=== PATIENT | male | born 1960 | race Caucasian/White ===

== ENCOUNTER 2020-11-07 06:26 | Day surgery (SDC) | payer MEDICARE ==
[~2020-11-07] VITALS: Ht 177.8 cm; Wt 114.7 kg
[~2020-11-07 06:26] MED LIST: ALBU.083IS IH; ALBU90OI INH; ALBU90OI6 INH; ALBU90OI61 INH; ALBUIS; ALBUTEROL NEB; AMOCLA875 PO; ASPI81EC; ASPI81EC PO; AZIT250 PO; Aspir 8181 MG PO; BASAGLAR K100 UNIT/1 SC; BECLNI19AQ IH; BENZ100A PO; BUDE10.22 IH; BUDE6HFA; BUDE6HFA INH; BUDESONIDE; CALCA500CH PO; CLON.5 PO; DIPH50 PO; DOXY100 PO; EPIN0.15; ESOM20; FLUC150A PO; FLUSAL1005; FLUSAL2505 IH; FLUSAL5005 IH; FLUSAL5005 INH; FLUT.05NI; FORMOTEROL; GUAI200 PO; HUMALOG KW100 UNIT/1 SC; HYDACE5 PO; HYDCHL12.5; HYDCHL25; IBUP200; IPRA.03NI; IPRAOI INH; Klonopin0.5 MG PO; LEVFLO500 PO; LISHYD1012 PO; LISHYD2025 PO; LISI20; LISI20 PO; MECL25 PO; METF500 PO; METFORMIN HCL500 MG PO; METO10; MOMENI; MONT10T PO; MONT5TCH PO; NAPR500 PO; NIFE90ER PO; OMALIZUMAB; OMEP20ER PO; OMEP40CA12 PO; ONDA4 PO; OXYACE5T PO; PENVK500; PENVK500 PO; PRED10 PO; PRED20 PO; PROM25 PO; SODIUM CHLORIDE; SUCR1 PO; SUCR1SU PO; SYMBICORT; VERA180ERA PO; Xolair150 MG SQ; ZESTORETIC 20-121 EA; [UNRECOGNIZED DRUG - OTHER]; [UNRECOGNIZED DRUG - REMARK]
[2020-11-07] MEDS ORDERED: HYDCHL25 (07:02)
[2020-11-07] MEDS ORDERED: SERT50 (07:02)
--- NOTE | 2020-11-07 07:26 | NUR ---
11/07/20 0726 Beena Baez REPORTED HTN TO DR HULL, NO ORDERS GIVEN. rEPORTED PTS HX COPD/ATHMA/COSME/CPAP AND DAILY USE OF INHALERS/ CLEAR WITH COUGH ON ADMISSION. ASKED IF DR HULL WOULD LIKE BREATHING TX, NO ORDERS GIVEN.
--- NOTE | 2020-11-07 08:12 | NUR ---
11/07/20 0812 Kevin Alejandra 2% LIDOCAINE WITH EPI 1:100,000 DILUTED WITH 0.9% INJ NORMAL SALINE 1:1 TO OBTAIN SOLUTION OF 1% LIDOCAINE WITH EPI 1:200,000. 3ML'S OF THIS SOLUTION INJ BY DR ESQUEDA INTO UPPER MOUTH FOR BLOCK AT 0755.
--- NOTE | 2020-11-07 10:44 | NUR ---
11/07/20 1044 [place] FENTANYL 50MCG GIVEN FOR CO PAIN
--- NOTE | 2020-11-07 11:11 | NUR ---
11/07/20 1111 [place] ALBUTEROL INHAL TREATMENT GIVEN PER DR HULL
== END 2020-11-07 12:12 | disposition home or self-care (01) ==
LOC: ORSCSDS 06:26
PROVIDERS: Otolaryngology
PROC: 09TU8ZZ Resection of Right Ethmoid Sinus, Via Natural or Artificial Opening Endoscopic (ICD-10-PCS; principal; 2020-11-07 07:30)
PROC: 8E09XBZ Computer Assisted Procedure of Head and Neck Region (ICD-10-PCS; principal; 2020-11-07 07:30)
PROC: 09TV8ZZ Resection of Left Ethmoid Sinus, Via Natural or Artificial Opening Endoscopic (ICD-10-PCS; principal; 2020-11-07 07:30)
DX: J32.4 Chronic pansinusitis (principal); J33.0 Polyp of nasal cavity; I10 Essential (primary) hypertension; G47.33 Obstructive sleep apnea (adult) (pediatric); J45.909 Unspecified asthma, uncomplicated; K21.9 Gastro-esophageal reflux disease without esophagitis; F17.220 Nicotine dependence, chewing tobacco, uncomplicated; E66.01 Morbid (severe) obesity due to excess calories; Z68.36 Body mass index [BMI] 36.0-36.9, adult
CPT/HCPCS: 82947; 88305; 88312; C2625; J0171; J1100; J2001; J2250; J2370; J2405; J2704; J3010; J7120

== ENCOUNTER 2020-11-11 23:11 | Emergency (ER) | payer MEDICARE ==
[~2020-11-11] VITALS: Ht 177.8 cm; Wt 108.9 kg
[~2020-11-11 23:11] MED LIST changes: +SERT50
[2020-11-11] MEDS ORDERED: LOSA25 PO (23:20)
[2020-11-11] MEDS ORDERED: ROPI.25 PO (23:21)
[2020-11-11] MEDS ORDERED: CLAR500CR (23:22)
[2020-11-11] MEDS ORDERED: PROM25 (23:28)
[2020-11-11] MEDS ORDERED: DULO60 PO (23:29)
[2020-11-11] MEDS ORDERED: DOXY100 PO (23:29)
[2020-11-11] MEDS ORDERED: MONT10T PO (23:30)
[2020-11-11] MEDS ORDERED: GABA400 PO (23:31)
[2020-11-11] MEDS ORDERED: METF500 PO (23:31)
[2020-11-11] MEDS ORDERED: ATOR80 PO (23:32)
[2020-11-12] MEDS ORDERED: PSEUDOEPHEDRINE30 M1 PO (02:47)
[2020-11-12] MEDS ORDERED: Roxicodone5 MG PO (02:47)
== END 2020-11-12 02:57 | disposition home or self-care (01) ==
LOC: ER 23:11
DX: J32.9 Chronic sinusitis, unspecified (principal); G89.18 Other acute postprocedural pain; J34.89 Other specified disorders of nose and nasal sinuses; I10 Essential (primary) hypertension; J44.9 Chronic obstructive pulmonary disease, unspecified; E11.9 Type 2 diabetes mellitus without complications; Z88.8 Allergy status to other drugs, medicaments and biological substances; Z79.52 Long term (current) use of systemic steroids; Z79.82 Long term (current) use of aspirin; Z79.899 Other long term (current) drug therapy
CPT/HCPCS: 70486; 96372; 99284-25; A9270; J1170

== ENCOUNTER 2020-12-01 03:47 | Emergency (ER) | payer MEDICARE ==
[~2020-12-01] VITALS: Ht 177.8 cm; Wt 63.5 kg
[~2020-12-01 03:47] MED LIST changes: -ALBUIS; -BUDE6HFA; +CLAR500CR; -FLUT.05NI; +PROM25; +PSEUDOEPHEDRINE30 M1 PO; +Roxicodone5 MG PO; -SERT50
== END 2020-12-01 05:40 | disposition home or self-care (01) ==
LOC: ER 03:47
DX: G89.18 Other acute postprocedural pain (principal); J34.89 Other specified disorders of nose and nasal sinuses; I10 Essential (primary) hypertension; J44.9 Chronic obstructive pulmonary disease, unspecified; E11.9 Type 2 diabetes mellitus without complications; I25.10 Atherosclerotic heart disease of native coronary artery without angina pectoris; F17.220 Nicotine dependence, chewing tobacco, uncomplicated; Z79.52 Long term (current) use of systemic steroids; Z79.84 Long term (current) use of oral hypoglycemic drugs; Z79.82 Long term (current) use of aspirin; Z79.899 Other long term (current) drug therapy
CPT/HCPCS: 99285; A9270

== ENCOUNTER 2021-01-03 16:18 | Emergency (ER) | payer MEDICARE ==
[~2021-01-03] VITALS: Ht 177.8 cm; Wt 108.9 kg
[2021-01-03 16:52] LABS: BASOPHILS ABSOLUTE AUTO 0.11 K/mm3 (0.00-0.23); BASOPHILS PERCENT AUTO 2 % (0-2); EOSINOPHILS PERCENT AUTO 7 % (0-6); Hematocrit 41.9 % (37.0-53.0); Hemoglobin 12.7 g/dL (13.5-17.5); IMMATURE GRAN ABSOLUTE AUTO 0.03 K/mm3 (0.00-0.10); IMMATURE GRAN PERCENT AUTO 0 % (0-1); LYMPHOCYTES ABSOLUTE AUTO 1.79 K/mm3 (0.84-5.20); LYMPHOCYTES PERCENT AUTO 24 % (21-46); MONOCYTES ABSOLUTE AUTO 0.67 K/mm3 (0.16-1.47); MONOCYTES PERCENT AUTO 9 % (4-13); Mean Corpuscular HGB 24.9 pg (26.0-34.0); Mean Corpuscular HGB Conc 30.3 g/dL (31.5-36.5); Mean Corpuscular Volume 82 fL (80-100); Mean Platelet Volume 9.4 fL (9.1-12.4); NEUTROPHILS ABSOLUTE AUTO 4.28 K/mm3 (1.96-9.15); NEUTROPHILS PERCENT AUTO 58 % (41-73); Platelet Count 320 K/mm3 (150-400); RDW Coefficient Variation 14.7 % (11.7-14.2); Red Blood Cell Count 5.11 M/mm3 (4.30-5.90); White Blood Cell Count 7.38 K/mm3 (4.00-11.30)
[2021-01-03 17:23] LABS: Alanine Aminotransfer (ALT/SGP 23 U/L (12-78); Albumin, Blood 3.3 g/dL (3.4-5.0); Albumin/Globulin Ratio 0.8 (0.8-1.8); Alk Phos 122 U/L (50-136); Anion Gap 7 mmol/L (6-16); Aspartate Aminotrans (AST/SGOT 12 U/L (12-37); Bilirubin, Total 0.1 mg/dL (0.1-1.0); Blood Urea Nitrogen 18 mg/dL (8-24); Bun/Creatinine Ratio 24.7 (12.0-20.0); CO2, Blood 25 mmol/L (21-32); Calcium, Blood 8.2 mg/dL (8.5-10.1); Chloride, Blood 113 mmol/L (98-108); Creatinine, Blood 0.73 mg/dL (0.60-1.20); Globulin, Blood 4.1 g/dL (2.2-4.0); Glomerular Filtration Rate >60 (60-); Glucose, Blood 103 mg/dL (70-99); Potassium, Blood 3.5 mmol/L (3.5-5.5); Sodium, Blood 145 mmol/L (136-145); Total Protein, Blood 7.4 g/dL (6.4-8.2); Troponin I <0.015 ng/mL (0.000-0.040)
== END 2021-01-03 19:47 | disposition home or self-care (01) ==
LOC: ER 16:18
PROVIDERS: Emergency Medicine
DX: R55 Syncope and collapse (principal); I10 Essential (primary) hypertension; J44.9 Chronic obstructive pulmonary disease, unspecified; E11.9 Type 2 diabetes mellitus without complications; I25.10 Atherosclerotic heart disease of native coronary artery without angina pectoris; Z79.52 Long term (current) use of systemic steroids; Z79.82 Long term (current) use of aspirin; Z79.899 Other long term (current) drug therapy; F17.220 Nicotine dependence, chewing tobacco, uncomplicated
CPT/HCPCS: 71046; 80053; 84484; 85025; 93005; 93010; 96360; 96361; 99285-25; J7030

== ENCOUNTER 2021-01-11 21:53 | Emergency (ER) | payer MEDICARE ==
[~2021-01-11] VITALS: Ht 177.8 cm; Wt 104.3 kg
[2021-01-11 22:05] LABS: Calcium, Ionized (POC) 0.96 mmol/L (1.10-1.46); Chloride (POC) 106 mmol/L (98-108); Creatinine (POC) 1.1 mg/dL (0.8-1.3); Glucose (ISTAT POC) 99 mg/dL (70-99); Hemoglobin (POC) 13.9 g/dL (13.5-17.5); Potassium (POC) 3.6 mmol/L (3.5-5.5); Sodium (POC) 143 mmol/L (135-148); Total CO2 (POC) 24 mmol/L (21-32)
[2021-01-11 22:07] LABS: PO2 Arterial 116 mmHg (80-100); pH Blood Arterial 7.48 (7.35-7.45)
[2021-01-11 22:18] LABS: BASOPHILS ABSOLUTE AUTO 0.12 K/mm3 (0.00-0.23); BASOPHILS PERCENT AUTO 2 % (0-2); EOSINOPHILS ABSOLUTE AUTO 0.39 K/mm3 (0.00-0.68); EOSINOPHILS PERCENT AUTO 5 % (0-6); Hematocrit 41.3 % (37.0-53.0); Hemoglobin 12.8 g/dL (13.5-17.5); IMMATURE GRAN ABSOLUTE AUTO 0.03 K/mm3 (0.00-0.10); IMMATURE GRAN PERCENT AUTO 0 % (0-1); LYMPHOCYTES ABSOLUTE AUTO 2.03 K/mm3 (0.84-5.20); LYMPHOCYTES PERCENT AUTO 28 % (21-46); MONOCYTES ABSOLUTE AUTO 0.54 K/mm3 (0.16-1.47); MONOCYTES PERCENT AUTO 7 % (4-13); Mean Corpuscular HGB 24.9 pg (26.0-34.0); Mean Corpuscular Volume 80 fL (80-100); Mean Platelet Volume 9.2 fL (9.1-12.4); NEUTROPHILS ABSOLUTE AUTO 4.22 K/mm3 (1.96-9.15); NEUTROPHILS PERCENT AUTO 58 % (41-73); Platelet Count 335 K/mm3 (150-400); RDW Coefficient Variation 14.7 % (11.7-14.2); RDW Standard Deviation 43.1 fL (35.1-46.3); Red Blood Cell Count 5.14 M/mm3 (4.30-5.90); White Blood Cell Count 7.33 K/mm3 (4.00-11.30)
[2021-01-11] MEDS ORDERED: SERT50 PO (22:28)
[2021-01-11] MEDS ORDERED: LOSA25 PO (22:28)
[2021-01-11] MEDS ORDERED: DULO60 PO (22:29)
[2021-01-11] MEDS ORDERED: ATOR80 PO (22:29)
[2021-01-11] MEDS ORDERED: MONT10T PO (22:30)
[2021-01-11] MEDS ORDERED: BASAGLAR K100 UNIT/1 (22:30)
[2021-01-11] MEDS ORDERED: OMEP20ER PO (22:30)
[2021-01-11] MEDS ORDERED: SYMBICORT 80-10.2 GM INH (22:31)
[2021-01-11] MEDS ORDERED: ROPINIROLE HCL0.5 MG PO (22:31)
[2021-01-11] MEDS ORDERED: FLUT.05NI (22:32)
[2021-01-11] MEDS ORDERED: HYDCHL25 PO (22:33)
[2021-01-11] MEDS ORDERED: NOVOLOG FL100 UNIT/3 (22:34)
[2021-01-11 22:35] LABS: International Normalized Ratio 0.91; Prothrombin Time Results 9.8 Sec (9.7-11.5)
[2021-01-11] MEDS ORDERED: Ventolin/Prove6.7 GM INH (22:35)
[2021-01-11] MEDS ORDERED: GABAPENTIN600 MG PO (22:35)
[2021-01-11 22:37] LABS: Troponin I <0.015 ng/mL (0.000-0.040)
[2021-01-11 23:06] LABS: Alanine Aminotransfer (ALT/SGP 25 U/L (12-78); Albumin, Blood 3.2 g/dL (3.4-5.0); Albumin/Globulin Ratio 0.8 (0.8-1.8); Alk Phos 129 U/L (50-136); Anion Gap 12 mmol/L (6-16); Aspartate Aminotrans (AST/SGOT 18 U/L (12-37); Bilirubin, Total 0.2 mg/dL (0.1-1.0); Blood Urea Nitrogen 15 mg/dL (8-24); Bun/Creatinine Ratio 18.6 (12.0-20.0); CO2, Blood 22 mmol/L (21-32); Calcium, Blood 8.1 mg/dL (8.5-10.1); Chloride, Blood 111 mmol/L (98-108); Creatinine, Blood 0.81 mg/dL (0.60-1.20); Ethanol (Alcohol), Blood, Med 306 mg/dL; Globulin, Blood 4.2 g/dL (2.2-4.0); Glomerular Filtration Rate >60 (60-); Glucose, Blood 93 mg/dL (70-99); Potassium, Blood 3.6 mmol/L (3.5-5.5); Sodium, Blood 145 mmol/L (136-145); Total Protein, Blood 7.4 g/dL (6.4-8.2)
== END 2021-01-11 23:05 | disposition left against medical advice (07) ==
LOC: ER 21:53
PROVIDERS: Emergency Medicine
DX: F10.129 Alcohol abuse with intoxication, unspecified (principal); R55 Syncope and collapse; I10 Essential (primary) hypertension; J44.9 Chronic obstructive pulmonary disease, unspecified; Z79.52 Long term (current) use of systemic steroids; Z79.899 Other long term (current) drug therapy
CPT/HCPCS: 36415; 36600; 70450; 72125; 80047; 80053; 82140; 82803; 84484; 85014; 85025; 85610; 85730; 93005; 93010; 99285-25; G0480

== ENCOUNTER 2021-01-11 23:47 | Observation (INO) | payer MEDICARE ==
[~2021-01-11] VITALS: Ht 177.8 cm; Wt 104.3 kg
[~2021-01-11 23:47] MED LIST changes: +ATOR80 PO; +BASAGLAR K100 UNIT/1; +DULO60 PO; +FLUT.05NI; +GABAPENTIN600 MG PO; +HYDCHL25 PO; +LOSA25 PO; +NOVOLOG FL100 UNIT/3; +ROPINIROLE HCL0.5 MG PO; +SERT50 PO; +SYMBICORT 80-10.2 GM INH; +Ventolin/Prove6.7 GM INH
== END 2021-01-12 01:19 | disposition home or self-care (01) ==
LOC: ER 23:47 → EOR 23:48 → ER 01-12 00:03 → EOR 01-12 01:19
PROVIDERS: ADMIT Emergency Medicine
DX: F10.129 Alcohol abuse with intoxication, unspecified (principal); Y90.9 Presence of alcohol in blood, level not specified
CPT/HCPCS: 36415; 36600; 70450; 72125; 80053; 82140; 82803; 84484; 85025; 85610; 85730; 93005; 93010; 99285; 99285-25; G0378; G0480

== ENCOUNTER 2021-05-19 18:21 | Emergency (ER) | payer MEDICARE ==
[~2021-05-19] VITALS: Ht 177.8 cm; Wt 90.7 kg
[2021-05-19 19:11] LABS: BASOPHILS ABSOLUTE AUTO 0.14 K/mm3 (0.00-0.23); BASOPHILS PERCENT AUTO 2 % (0-2); EOSINOPHILS ABSOLUTE AUTO 0.21 K/mm3 (0.00-0.68); EOSINOPHILS PERCENT AUTO 3 % (0-6); Hemoglobin 13.4 g/dL (13.5-17.5); IMMATURE GRAN ABSOLUTE AUTO 0.02 K/mm3 (0.00-0.10); IMMATURE GRAN PERCENT AUTO 0 % (0-1); LYMPHOCYTES ABSOLUTE AUTO 1.87 K/mm3 (0.84-5.20); LYMPHOCYTES PERCENT AUTO 27 % (21-46); MONOCYTES ABSOLUTE AUTO 0.75 K/mm3 (0.16-1.47); MONOCYTES PERCENT AUTO 11 % (4-13); Mean Corpuscular HGB 25.8 pg (26.0-34.0); Mean Corpuscular HGB Conc 31.9 g/dL (31.5-36.5); Mean Corpuscular Volume 81 fL (80-100); Mean Platelet Volume 9.2 fL (9.1-12.4); NEUTROPHILS ABSOLUTE AUTO 4.06 K/mm3 (1.96-9.15); NEUTROPHILS PERCENT AUTO 58 % (41-73); Platelet Count 309 K/mm3 (150-400); RDW Standard Deviation 52.9 fL (35.1-46.3); Red Blood Cell Count 5.19 M/mm3 (4.30-5.90); White Blood Cell Count 7.05 K/mm3 (4.00-11.30)
[2021-05-19 19:23] LABS: Alanine Aminotransfer (ALT/SGP 26 U/L (12-78); Albumin, Blood 3.4 g/dL (3.4-5.0); Albumin/Globulin Ratio 0.7 (0.8-1.8); Alk Phos 121 U/L (50-136); Anion Gap 8 mmol/L (6-16); Aspartate Aminotrans (AST/SGOT 33 U/L (12-37); Bilirubin, Total 0.2 mg/dL (0.1-1.0); Blood Urea Nitrogen 14 mg/dL (8-24); Bun/Creatinine Ratio 14.6 (12.0-20.0); CO2, Blood 26 mmol/L (21-32); Calcium, Blood 8.8 mg/dL (8.5-10.1); Chloride, Blood 109 mmol/L (98-108); Creatinine, Blood 0.96 mg/dL (0.60-1.20); Globulin, Blood 4.9 g/dL (2.2-4.0); Glomerular Filtration Rate >60 (60-); Glucose, Blood 105 mg/dL (70-99); Potassium, Blood 3.7 mmol/L (3.5-5.5); Sodium, Blood 143 mmol/L (136-145); Total Protein, Blood 8.3 g/dL (6.4-8.2)
== END 2021-05-19 20:00 | disposition home or self-care (01) ==
LOC: ER 18:21
PROVIDERS: Physician Assistant
DX: E86.0 Dehydration (principal); I10 Essential (primary) hypertension; J44.9 Chronic obstructive pulmonary disease, unspecified; F17.220 Nicotine dependence, chewing tobacco, uncomplicated; Z79.899 Other long term (current) drug therapy; Z79.4 Long term (current) use of insulin; Z88.8 Allergy status to other drugs, medicaments and biological substances
CPT/HCPCS: 36415; 80053; 83690; 85025; 96361; 96374; 99284-25; J2405; J7030

== ENCOUNTER 2021-06-02 01:34 | Emergency (ER) | payer MEDICARE, OTHER ==
[~2021-06-02] VITALS: Ht 177.8 cm; Wt 95.2 kg
[2021-06-02 02:07] LABS: BASOPHILS ABSOLUTE AUTO 0.13 K/mm3 (0.00-0.23); BASOPHILS PERCENT AUTO 2 % (0-2); EOSINOPHILS ABSOLUTE AUTO 0.14 K/mm3 (0.00-0.68); EOSINOPHILS PERCENT AUTO 2 % (0-6); Hematocrit 38.5 % (37.0-53.0); Hemoglobin 12.3 g/dL (13.5-17.5); IMMATURE GRAN ABSOLUTE AUTO 0.04 K/mm3 (0.00-0.10); IMMATURE GRAN PERCENT AUTO 1 % (0-1); LYMPHOCYTES ABSOLUTE AUTO 1.22 K/mm3 (0.84-5.20); LYMPHOCYTES PERCENT AUTO 18 % (21-46); MONOCYTES PERCENT AUTO 13 % (4-13); Mean Corpuscular HGB 26.3 pg (26.0-34.0); Mean Corpuscular HGB Conc 31.9 g/dL (31.5-36.5); Mean Corpuscular Volume 82 fL (80-100); Mean Platelet Volume 8.8 fL (9.1-12.4); NEUTROPHILS ABSOLUTE AUTO 4.48 K/mm3 (1.96-9.15); NEUTROPHILS PERCENT AUTO 65 % (41-73); Platelet Count 243 K/mm3 (150-400); RDW Standard Deviation 50.8 fL (35.1-46.3); Red Blood Cell Count 4.68 M/mm3 (4.30-5.90); White Blood Cell Count 6.91 K/mm3 (4.00-11.30)
[2021-06-02 02:12] LABS: Ethanol (Alcohol), Blood, Med <3 mg/dL; Magnesium, Blood 1.8 mg/dL (1.6-2.4); Troponin I <0.015 ng/mL (0.000-0.040)
[2021-06-02 02:13] LABS: Alanine Aminotransfer (ALT/SGP 26 U/L (12-78); Albumin, Blood 3.3 g/dL (3.4-5.0); Albumin/Globulin Ratio 0.8 (0.8-1.8); Alk Phos 105 U/L (50-136); Anion Gap 9 mmol/L (6-16); Aspartate Aminotrans (AST/SGOT 20 U/L (12-37); Bilirubin, Total 0.4 mg/dL (0.1-1.0); Blood Urea Nitrogen 13 mg/dL (8-24); CO2, Blood 26 mmol/L (21-32); Calcium, Blood 8.5 mg/dL (8.5-10.1); Chloride, Blood 105 mmol/L (98-108); Creatinine, Blood 0.81 mg/dL (0.60-1.20); Globulin, Blood 4.3 g/dL (2.2-4.0); Glomerular Filtration Rate >60 (60-); Glucose, Blood 117 mg/dL (70-99); Potassium, Blood 3.2 mmol/L (3.5-5.5); Sodium, Blood 140 mmol/L (136-145); Total Protein, Blood 7.6 g/dL (6.4-8.2)
[2021-06-02] MEDS ORDERED: CHLO10 PO (04:05)
== END 2021-06-02 04:23 | disposition home or self-care (01) ==
LOC: ER 01:34
PROVIDERS: Emergency Medicine
DX: F10.239 Alcohol dependence with withdrawal, unspecified (principal); I10 Essential (primary) hypertension; J44.9 Chronic obstructive pulmonary disease, unspecified; E11.9 Type 2 diabetes mellitus without complications; I25.10 Atherosclerotic heart disease of native coronary artery without angina pectoris; F17.220 Nicotine dependence, chewing tobacco, uncomplicated; Z79.4 Long term (current) use of insulin; Z79.899 Other long term (current) drug therapy
CPT/HCPCS: 80053; 83690; 83735; 84145; 84484; 85025; 93005; 93010; 96361; 96374; 99284-25; G0480; J2060; J7120

== ENCOUNTER 2021-06-13 17:27 | Emergency (ER) | payer MEDICARE, OTHER ==
[~2021-06-13] VITALS: Ht 177.8 cm; Wt 95.2 kg
[~2021-06-13 17:27] MED LIST changes: +CHLO10 PO
== END 2021-06-13 18:20 | disposition home or self-care (01) ==
LOC: ER 17:27
DX: G89.18 Other acute postprocedural pain (principal); R51.9 Headache, unspecified; G89.29 Other chronic pain; Z79.4 Long term (current) use of insulin; Z79.899 Other long term (current) drug therapy
CPT/HCPCS: 96372; 99284-25; A9270; J1100; J1885

== ENCOUNTER 2022-06-24 15:26 | Emergency (ER) | payer MEDICARE, OTHER ==
[~2022-06-24] VITALS: Ht 177.8 cm; Wt 97.5 kg
== END 2022-06-24 17:57 | disposition home or self-care (01) ==
LOC: ER 15:26
DX: U07.1 COVID-19 (principal); I10 Essential (primary) hypertension; J44.9 Chronic obstructive pulmonary disease, unspecified; E11.9 Type 2 diabetes mellitus without complications; I25.10 Atherosclerotic heart disease of native coronary artery without angina pectoris; F17.220 Nicotine dependence, chewing tobacco, uncomplicated; Z88.8 Allergy status to other drugs, medicaments and biological substances; Z79.899 Other long term (current) drug therapy; Z79.4 Long term (current) use of insulin
CPT/HCPCS: 99283-25; M0222

== ENCOUNTER 2023-01-24 16:17 | Inpatient (IN) | payer MEDICARE, OTHER ==
[~2023-01-24] VITALS: Ht 177.8 cm; Wt 109.0 kg
[~2023-01-24 16:17] MED LIST changes: -BASAGLAR K100 UNIT/1; -NOVOLOG FL100 UNIT/3; +NOVOLOG FL100 UNIT/3 SC
[2023-01-24 16:56] LABS: BASOPHILS ABSOLUTE AUTO 0.15 K/mm3 (0.00-0.23); BASOPHILS PERCENT AUTO 2 % (0-2); EOSINOPHILS ABSOLUTE AUTO 1.02 K/mm3 (0.00-0.68); EOSINOPHILS PERCENT AUTO 11 % (0-6); Hematocrit 39.7 % (37.0-53.0); Hemoglobin 12.6 g/dL (13.5-17.5); IMMATURE GRAN ABSOLUTE AUTO 0.01 K/mm3 (0.00-0.10); IMMATURE GRAN PERCENT AUTO 0 % (0-1); LYMPHOCYTES ABSOLUTE AUTO 1.42 K/mm3 (0.84-5.20); LYMPHOCYTES PERCENT AUTO 15 % (21-46); MONOCYTES ABSOLUTE AUTO 0.71 K/mm3 (0.16-1.47); MONOCYTES PERCENT AUTO 8 % (4-13); Mean Corpuscular HGB 24.9 pg (26.0-34.0); Mean Corpuscular HGB Conc 31.7 g/dL (31.5-36.5); Mean Corpuscular Volume 78 fL (80-100); Mean Platelet Volume 9.4 fL (9.1-12.4); NEUTROPHILS ABSOLUTE AUTO 6.08 K/mm3 (1.96-9.15); NEUTROPHILS PERCENT AUTO 65 % (41-73); Platelet Count 355 K/mm3 (150-400); RDW Coefficient Variation 14.1 % (11.7-14.2); RDW Standard Deviation 39.8 fL (35.1-46.3); Red Blood Cell Count 5.07 M/mm3 (4.30-5.90); White Blood Cell Count 9.39 K/mm3 (4.00-11.30)
[2023-01-24 17:05] LABS: Base Excess Venous 0 mmol/L; Bicarbonate Venous 24.7 mmol/L (24.0-30.0); PCO2 Venous 36.4 mmHg (38-42); pH Blood Venous 7.43 (7.34-7.37)
[2023-01-24 17:14] LABS: Albumin, Blood 3.1 g/dL (3.4-5.0); Albumin/Globulin Ratio 0.8 (0.8-1.8); Bilirubin, Total 0.2 mg/dL (0.1-1.0); Calcium, Blood 8.2 mg/dL (8.5-10.1); Creatinine, Blood 0.77 mg/dL (0.60-1.20); Globulin, Blood 3.8 g/dL (2.2-4.0); Potassium, Blood 3.5 mmol/L (3.5-5.5); Total Protein, Blood 6.9 g/dL (6.4-8.2)
--- NOTE | 2023-01-24 22:49 | NUR ---
PATIENT IS A NEW ADMIT FROM THE ED. AXOX 4 AND INDEPENDENT. ARRIVE VIA W/C AND SELF TRANSFER TO BED. ON ROOM AIR. DENIES CHEST PAIN AND N/V. SOB W/EXERTION. REPORTS LIMITED RIGHT EYE VISION WITH HX OF R. EYE STROKE. ORIENTED TO ROOM AND CALL LIGHT SYSTEM. WANTS TO WATCH TV AFTER ASSESSENT. RT NOW PRESENT FOR BREATHING TX. CALL LIGHT IN REACH. WCTM.
--- NOTE | 2023-01-25 04:28 | NUR ---
SHIFT SUMMARY PATIENT HAD NO ACUTE CHANGES. AXOX 4 AND INDEPENDENT IN ROOM. USES URINAL AT BEDSIDE. ON ROOM AIR. PIV REMAINS INTACT. RT IN FOR BREATHING TX. VSS/AFEBRILE. DENIES CHEST PAIN AND N/V. SOB WITH EXERTION. REPORTED LIMITED RIGHT EYE VISION WITH HX OF RIGHT EYE STROKE. HOSPITALIST DR BROWN ORDERED HOME MED RX REQUIP 0.5 MG BIDP FOR RESTLESS LEGS AND GIVEN X ONE. CALL LIGHT IN REACH. BED IN LOWEST POSITION. WILL CONTINUE TO MONITOR UNTIL DAY SHIFT NURSE ASSUMES CARE.
--- NOTE | 2023-01-25 18:06 | NUR ---
SHIFT SUMMARY PT AOX4 AND INDEPENDENT IN THE ROOM. NO ACUTE CHANGES THIS SHIFT. PT DID REQUEST HIS MEDICATION FOR RESTLESS LEGS AND IT WAS PROVIDED. HE HAS BEEN NAPPING OFF AND ON THROUGHOUT THE SHIFT. WILL REPORT TO ONCOMING NURSE.
--- NOTE | 2023-01-26 07:42 | NUR ---
SOLO SLEPT FAIRLY WELL OVERNIGHT, HOWEVER HE STILL WOKE VERY TIRED IF HE HADN'T SLEPT. VERY AUDIBLE EXPIRATORY WHEEZES IN ALL BILATERAL LUNG SAVAGE. HE IS STILL REMAINING GREATER THAN 90% ON ROOM AIR. SOLO IS HOPING HE WILL BE ABLE TO GET HOME TODAY,HOWEVER, HE'S STILL OON Q6 HOUR SOLUMEDROL. AMBULATES INDEPENDENTLY IN ROOM. STATES HE IS NEARING HIS BASELINE
[2023-01-26] MEDS ORDERED: PRED20 PO (14:35)
--- NOTE | 2023-01-26 15:05 | NUR ---
DISCHARGE NOTE PT DISCHARGE TO HOME VIA TAXI. IV REMOVED SUCCESSFULLY. DISCHARGE INFORMATION AND INSTRUCTIONS PROVIDED. PT WALKED HIMSELF TO MEET THE TAXI. MEDICATIONS FAXED TO THE PHARMACY OF HIS CHOICE.
== END 2023-01-26 15:03 | disposition home or self-care (01) | DRG 189 ==
LOC: ER 16:17 → MEDS 16:18
PROVIDERS: Emergency Medicine; Physician Assistant; ADMIT Internal Medicine
PROC: 5A09357 Assistance with Respiratory Ventilation, Less than 24 Consecutive Hours, Continuous Positive Airway Pressure (ICD-10-PCS; principal; 2023-01-25)
PROC: 4A133R1 Monitoring of Arterial Saturation, Peripheral, Percutaneous Approach (ICD-10-PCS; 2023-01-25)
DX: J96.01 Acute respiratory failure with hypoxia (principal); J45.901 Unspecified asthma with (acute) exacerbation; J82.83 Eosinophilic asthma; Z68.41 Body mass index [BMI] 40.0-44.9, adult; J45.902 Unspecified asthma with status asthmaticus; I10 Essential (primary) hypertension; E11.42 Type 2 diabetes mellitus with diabetic polyneuropathy; E78.5 Hyperlipidemia, unspecified; K21.9 Gastro-esophageal reflux disease without esophagitis; G25.81 Restless legs syndrome; I25.10 Atherosclerotic heart disease of native coronary artery without angina pectoris; G47.30 Sleep apnea, unspecified; J44.9 Chronic obstructive pulmonary disease, unspecified; F17.220 Nicotine dependence, chewing tobacco, uncomplicated; F10.10 Alcohol abuse, uncomplicated; Z96.611 Presence of right artificial shoulder joint; Z88.8 Allergy status to other drugs, medicaments and biological substances; Z79.899 Other long term (current) drug therapy; Z79.02 Long term (current) use of antithrombotics/antiplatelets; Z99.81 Dependence on supplemental oxygen; Z79.4 Long term (current) use of insulin; Z79.52 Long term (current) use of systemic steroids; Z98.890 Other specified postprocedural states; Z79.51 Long term (current) use of inhaled steroids
CPT/HCPCS: 71046; 80053; 82803; 82947; 83880; 84484; 85025; 93005; 93010; 94640; 94645; 94664; 94760; 96374; 96376; 99285-25; A9270; J1650; J2930

== ENCOUNTER 2023-11-24 13:51 | Emergency (ER) | payer MEDICARE, OTHER ==
[~2023-11-24] VITALS: Ht 177.8 cm; Wt 104.3 kg
[2023-11-24] MEDS ORDERED: Prednisone20 MG PO (15:16)
[2023-11-24 15:30] VITALS: BP 128/94
== END 2023-11-24 15:38 | disposition home or self-care (01) ==
LOC: ER 13:51
DX: J45.901 Unspecified asthma with (acute) exacerbation (principal); J44.9 Chronic obstructive pulmonary disease, unspecified; I10 Essential (primary) hypertension; I25.10 Atherosclerotic heart disease of native coronary artery without angina pectoris; E11.9 Type 2 diabetes mellitus without complications; F17.220 Nicotine dependence, chewing tobacco, uncomplicated; Z88.8 Allergy status to other drugs, medicaments and biological substances; Z79.51 Long term (current) use of inhaled steroids; Z79.899 Other long term (current) drug therapy; Z79.4 Long term (current) use of insulin
CPT/HCPCS: 94640; 94664; 99284-25; J7512

== ENCOUNTER 2024-01-01 04:53 | Emergency (ER) | payer MEDICARE, OTHER ==
[~2024-01-01] VITALS: Ht 177.8 cm; Wt 108.9 kg
[~2024-01-01 04:53] MED LIST changes: +Prednisone20 MG PO
[2024-01-01] MEDS ORDERED: METFORMIN HCL500 M2 PO (05:07)
[2024-01-01] MEDS ORDERED: METPRE32 PO (05:07)
[2024-01-01] MEDS ORDERED: Ondansetron HCl 2 MG / ML 2ML Vial IV PRN (05:15)
[2024-01-01 05:38] LABS: BASOPHILS ABSOLUTE AUTO 0.06 K/mm3 (0.00-0.23); BASOPHILS PERCENT AUTO 1 % (0-2); EOSINOPHILS ABSOLUTE AUTO 1.35 K/mm3 (0.00-0.68); EOSINOPHILS PERCENT AUTO 15 % (0-6); IMMATURE GRAN ABSOLUTE AUTO 0.01 K/mm3 (0.00-0.10); IMMATURE GRAN PERCENT AUTO 0 % (0-1); LYMPHOCYTES ABSOLUTE AUTO 1.36 K/mm3 (0.84-5.20); LYMPHOCYTES PERCENT AUTO 15 % (21-46); MONOCYTES ABSOLUTE AUTO 0.67 K/mm3 (0.16-1.47); MONOCYTES PERCENT AUTO 7 % (4-13); Mean Corpuscular HGB 24.6 pg (26.0-34.0); Mean Corpuscular Volume 80 fL (80-100); Mean Platelet Volume 9.4 fL (9.1-12.4); NEUTROPHILS ABSOLUTE AUTO 5.73 K/mm3 (1.96-9.15); NEUTROPHILS PERCENT AUTO 62 % (41-73); Platelet Count 334 K/mm3 (150-400); RDW Coefficient Variation 14.4 % (11.7-14.2); RDW Standard Deviation 41.7 fL (35.1-46.3); Red Blood Cell Count 5.28 M/mm3 (4.30-5.90); White Blood Cell Count 9.18 K/mm3 (4.00-11.30)
[2024-01-01] MEDS ORDERED: FentaNYL Citrate 50 MCG/ML 2 ML Injection IV ONE (05:45)
[2024-01-01 05:56] LABS: Albumin, Blood 3.2 g/dL (3.4-5.0); Albumin/Globulin Ratio 0.8 (0.8-1.8); Bilirubin, Total 0.2 mg/dL (0.1-1.0); Bun/Creatinine Ratio 12.6 (12.0-20.0); Creatinine, Blood 1.11 mg/dL (0.60-1.20); Globulin, Blood 3.9 g/dL (2.2-4.0); Potassium, Blood 4.5 mmol/L (3.5-5.5); Total Protein, Blood 7.1 g/dL (6.4-8.2)
[2024-01-01 06:30] VITALS: BP 177/116
[2024-01-01] MEDS ORDERED: Metoclopramide HCl 5MG / ML 2ML Vial IV ONE (06:45)
[2024-01-01] MEDS ORDERED: Mag Hydrox/AL Hydrox/Simeth 30 ML UDC PO ONE (06:45)
[2024-01-01] MEDS ORDERED: ALMACONE SUSPE355 ML PO (08:34)
== END 2024-01-01 08:55 | disposition home or self-care (01) ==
LOC: ER 04:53
PROVIDERS: Emergency Medicine
DX: K21.9 Gastro-esophageal reflux disease without esophagitis (principal); I10 Essential (primary) hypertension; Z68.34 Body mass index [BMI] 34.0-34.9, adult; R07.2 Precordial pain; Z88.8 Allergy status to other drugs, medicaments and biological substances; Z79.899 Other long term (current) drug therapy; J44.89 Other specified chronic obstructive pulmonary disease; G47.30 Sleep apnea, unspecified; I25.10 Atherosclerotic heart disease of native coronary artery without angina pectoris
CPT/HCPCS: 71046; 80053; 83690; 84484; 85025; 93005; 93010; 96374; 96375; 99285-25; A9270; J2405; J2765; J3010

== ENCOUNTER 2024-08-16 01:42 | Emergency (ER) | payer MEDICARE, OTHER ==
[~2024-08-16] VITALS: Ht 177.8 cm; Wt 108.9 kg
[~2024-08-16 01:42] MED LIST changes: +ALMACONE SUSPE355 ML PO; +METFORMIN HCL500 M2 PO; +METPRE32 PO; +SYMBICORT 80-10.2 GM PO
[2024-08-16 01:51] VITALS: BP 148/78
== END 2024-08-16 02:30 | disposition left against medical advice (07) ==
LOC: ER 01:42
DX: Z53.21 Procedure and treatment not carried out due to patient leaving prior to being seen by health care provider (principal)
CPT/HCPCS: 71045; 73030

== ENCOUNTER 2024-10-01 09:42 | Emergency (ER) | payer MEDICARE, OTHER ==
[~2024-10-01] VITALS: Ht 177.8 cm; Wt 108.9 kg
[2024-10-01 11:43] VITALS: BP 145/98
== END 2024-10-01 14:05 | disposition home or self-care (01) ==
LOC: ER 09:42
DX: M24.411 Recurrent dislocation, right shoulder (principal); Z88.8 Allergy status to other drugs, medicaments and biological substances; Z79.899 Other long term (current) drug therapy; Z79.84 Long term (current) use of oral hypoglycemic drugs; I10 Essential (primary) hypertension; J44.89 Other specified chronic obstructive pulmonary disease; G47.30 Sleep apnea, unspecified; E11.40 Type 2 diabetes mellitus with diabetic neuropathy, unspecified; E78.5 Hyperlipidemia, unspecified; K21.9 Gastro-esophageal reflux disease without esophagitis; F17.220 Nicotine dependence, chewing tobacco, uncomplicated
CPT/HCPCS: 29105; 73030; 99284-25

== ENCOUNTER 2024-10-14 01:28 | Emergency (ER) | payer MEDICARE ==
[~2024-10-14] VITALS: Ht 177.8 cm; Wt 104.3 kg
[2024-10-14 01:38] VITALS: BP 163/93
[2024-10-14 02:41] LABS: BASOPHILS ABSOLUTE AUTO 0.12 K/mm3 (0.00-0.23); BASOPHILS PERCENT AUTO 1 % (0-2); EOSINOPHILS ABSOLUTE AUTO 0.41 K/mm3 (0.00-0.68); EOSINOPHILS PERCENT AUTO 3 % (0-6); Hematocrit 36.9 % (37.0-53.0); Hemoglobin 11.3 g/dL (13.5-17.5); IMMATURE GRAN ABSOLUTE AUTO 0.06 K/mm3 (0.00-0.10); IMMATURE GRAN PERCENT AUTO 0 % (0-1); LYMPHOCYTES ABSOLUTE AUTO 1.43 K/mm3 (0.84-5.20); LYMPHOCYTES PERCENT AUTO 10 % (21-46); MONOCYTES ABSOLUTE AUTO 1.46 K/mm3 (0.16-1.47); MONOCYTES PERCENT AUTO 10 % (4-13); Mean Corpuscular HGB 24.5 pg (26.0-34.0); Mean Corpuscular HGB Conc 30.6 g/dL (31.5-36.5); Mean Corpuscular Volume 80 fL (80-100); Mean Platelet Volume 9.6 fL (9.1-12.4); NEUTROPHILS ABSOLUTE AUTO 11.63 K/mm3 (1.96-9.15); NEUTROPHILS PERCENT AUTO 77 % (41-73); Platelet Count 340 K/mm3 (150-400); RDW Standard Deviation 43.5 fL (35.1-46.3); Red Blood Cell Count 4.62 M/mm3 (4.30-5.90); White Blood Cell Count 15.11 K/mm3 (4.00-11.30)
[2024-10-14 03:16] LABS: Albumin, Blood 2.9 g/dL (3.4-5.0); Albumin/Globulin Ratio 0.7 (0.8-1.8); Bilirubin, Total 0.7 mg/dL (0.1-1.0); Bun/Creatinine Ratio 13.9 (12.0-20.0); Calcium, Blood 8.3 mg/dL (8.5-10.1); Creatinine, Blood 0.72 mg/dL (0.60-1.20); Globulin, Blood 4.4 g/dL (2.2-4.0); Potassium, Blood 3.7 mmol/L (3.5-5.5); Total Protein, Blood 7.3 g/dL (6.4-8.2)
[2024-10-14 03:17] LABS: Influenza A, PCR NEGATIVE (NEGATIVE); Influenza B, PCR NEGATIVE (NEGATIVE); Resp Syncytial Virus, PCR NEGATIVE (NEGATIVE); SARS-Cov-2 (COVID-19) PCR, MMC NEGATIVE (NEGATIVE)
[2024-10-14] MEDS ORDERED: Ipratropium/Albuterol SulF 2.5-0.5MG/3 ML Amp INH ONE (04:20)
[2024-10-14] MEDS ORDERED: PredniSONE 20 MG Tab PO ONE (04:20)
[2024-10-14] MEDS ORDERED: AZIT250 PO (04:22)
[2024-10-14] MEDS ORDERED: Azithromycin 250 MG Tab PO ONE (04:25)
== END 2024-10-14 04:45 ==
LOC: ER 01:28
PROVIDERS: Emergency Medicine
DX: J44.0 Chronic obstructive pulmonary disease with (acute) lower respiratory infection (principal); J44.1 Chronic obstructive pulmonary disease with (acute) exacerbation; J45.901 Unspecified asthma with (acute) exacerbation; E11.9 Type 2 diabetes mellitus without complications; I10 Essential (primary) hypertension; K21.9 Gastro-esophageal reflux disease without esophagitis; G47.30 Sleep apnea, unspecified; Z68.33 Body mass index [BMI] 33.0-33.9, adult; Z79.52 Long term (current) use of systemic steroids; Z79.51 Long term (current) use of inhaled steroids; Z79.84 Long term (current) use of oral hypoglycemic drugs; Z88.8 Allergy status to other drugs, medicaments and biological substances
CPT/HCPCS: 0241U; 71045; 80053; 85025; 93005; 93010; 94640; 94664; 99284-25; A9270; J7512

== ENCOUNTER 2024-11-23 01:06 | Emergency (ER) | payer MEDICARE ==
[~2024-11-23] VITALS: Ht 177.8 cm; Wt 102.1 kg
[2024-11-23 01:24] VITALS: BP 148/107
[2024-11-23] MEDS ORDERED: Acetaminophen 500 MG Tab PO ONE (04:35)
[2024-11-23] MEDS ORDERED: Ibuprofen 600 MG Tab PO ONE (04:35)
[2024-11-23] MEDS ORDERED: IBU600 M1 PO (04:36)
[2024-11-23] MEDS ORDERED: ACET500 PO (04:36)
== END 2024-11-23 04:53 | disposition home or self-care (01) ==
LOC: ER 01:06
DX: M24.411 Recurrent dislocation, right shoulder (principal); I10 Essential (primary) hypertension; J44.89 Other specified chronic obstructive pulmonary disease; G47.30 Sleep apnea, unspecified; E11.40 Type 2 diabetes mellitus with diabetic neuropathy, unspecified; E78.5 Hyperlipidemia, unspecified; K21.9 Gastro-esophageal reflux disease without esophagitis; F17.220 Nicotine dependence, chewing tobacco, uncomplicated; Z68.32 Body mass index [BMI] 32.0-32.9, adult; Z79.84 Long term (current) use of oral hypoglycemic drugs; Z79.52 Long term (current) use of systemic steroids; Z79.899 Other long term (current) drug therapy; Z79.51 Long term (current) use of inhaled steroids; Z79.82 Long term (current) use of aspirin; Z88.8 Allergy status to other drugs, medicaments and biological substances
CPT/HCPCS: 73030; 99283-25; A9270

== ENCOUNTER 2025-01-10 22:14 | Inpatient (IN) | payer MEDICARE ==
[~2025-01-10] VITALS: Ht 177.8 cm; Wt 102.6 kg
[~2025-01-10 22:14] MED LIST changes: +ACET500 PO; +IBU600 M1 PO
[2025-01-10] MEDS ORDERED: Ondansetron HCl 2 MG / ML 2ML Vial IV PRN (22:25)
[2025-01-10 22:33] LABS: BASOPHILS ABSOLUTE AUTO 0.14 K/mm3 (0.00-0.23); BASOPHILS PERCENT AUTO 1 % (0-2); EOSINOPHILS ABSOLUTE AUTO 0.66 K/mm3 (0.00-0.68); EOSINOPHILS PERCENT AUTO 7 % (0-6); Hematocrit 42.5 % (37.0-53.0); IMMATURE GRAN ABSOLUTE AUTO 0.03 K/mm3 (0.00-0.10); IMMATURE GRAN PERCENT AUTO 0 % (0-1); LYMPHOCYTES ABSOLUTE AUTO 2.66 K/mm3 (0.84-5.20); LYMPHOCYTES PERCENT AUTO 27 % (21-46); MONOCYTES ABSOLUTE AUTO 0.82 K/mm3 (0.16-1.47); MONOCYTES PERCENT AUTO 8 % (4-13); Mean Corpuscular HGB 24.5 pg (26.0-34.0); Mean Corpuscular HGB Conc 30.6 g/dL (31.5-36.5); Mean Corpuscular Volume 80 fL (80-100); Mean Platelet Volume 9.5 fL (9.1-12.4); NEUTROPHILS PERCENT AUTO 56 % (41-73); Platelet Count 349 K/mm3 (150-400); RDW Coefficient Variation 15.2 % (11.7-14.2); Red Blood Cell Count 5.31 M/mm3 (4.30-5.90); White Blood Cell Count 9.71 K/mm3 (4.00-11.30)
[2025-01-10] MEDS ORDERED: Lidocaine 2% Viscous Soln 15 ML UDC PO ONE (22:50)
[2025-01-10] MEDS ORDERED: Mag Hydrox/AL Hydrox/Simeth 30 ML UDC PO ONE (22:50)
[2025-01-10 22:55] LABS: Albumin, Blood 3.6 g/dL (3.4-5.0); Albumin/Globulin Ratio 0.8 (0.8-1.8); Bilirubin, Total 0.3 mg/dL (0.1-1.0); Bun/Creatinine Ratio 12.8 (12.0-20.0); Calcium, Blood 8.7 mg/dL (8.5-10.1); Creatinine, Blood 0.78 mg/dL (0.60-1.20); Globulin, Blood 4.4 g/dL (2.2-4.0); Potassium, Blood 3.9 mmol/L (3.5-5.5)
[2025-01-10] MEDS ORDERED: Metoclopramide HCl 5MG / ML 2ML Vial IV ONE (23:05)
[2025-01-10] MEDS ORDERED: Morphine Sulfate 4 MG/1 ML Injection IV ONE (23:10)
[2025-01-10] MEDS ORDERED: Ketamine HCL 10 MG in NS 100 ML IV ONE (23:30)
[2025-01-10] MEDS ORDERED: Ketamine HCl 100 MG / ML 5ML Vial ONE (23:41)
[2025-01-10] MEDS ORDERED: KETAMINE BC ONE (23:45)
[2025-01-10] MEDS ORDERED: Ketamine HCL 10 MG/ML 20MLVIAL IV ONE (23:55)
[2025-01-11] VITALS (16 sets, daily range): BP systolic 116–178; BP diastolic 75–100
[2025-01-11] MEDS ORDERED: Morphine Sulfate 4 MG/1 ML Injection ONE (02:11)
[2025-01-11] MEDS ORDERED: LOSA50 PO (03:59)
[2025-01-11] MEDS ORDERED: FLUTICASONE-SA1 EA12 INH (03:59)
[2025-01-11] MEDS ORDERED: Ondansetron HCl 2 MG / ML 2ML Vial IV PRN (04:00)
[2025-01-11] MEDS ORDERED: TIOT18 INH (04:00)
[2025-01-11] MEDS ORDERED: Lactated Ringer's 1,000 ML IV SCH ×2 (04:00→13:45)
[2025-01-11] MEDS ORDERED: METF500 PO (04:02)
[2025-01-11] MEDS ORDERED: ROPINIROLE HCL1 MG PO (04:03)
[2025-01-11] MEDS ORDERED: TRELEGY ELLIPT1 EAC1 INH (04:03)
[2025-01-11] MEDS ORDERED: EPINEPHRIN0.3 MG/0.1 IM (04:04)
[2025-01-11] MEDS ORDERED: Morphine Sulfate 4 MG/1 ML Injection IV PRN (04:05)
[2025-01-11] MEDS ORDERED: OXYC5 PO (04:05)
[2025-01-11] MEDS ORDERED: IBUP600 PO (04:05)
[2025-01-11 04:48] LABS: Source, Urine Clean Catch
[2025-01-11 04:56] LABS: Bilirubin, Urine Neg (Neg); Blood, Urine Neg (Neg); Glucose Qualitative, Urine Neg (Neg); Ketones, Urine Neg (Neg); Leukocyte Esterase, Urine Neg (Neg); Nitrite, Urine Neg (Neg); Protein, Urine Neg (Neg); Specific Gravity, Urine 1.015 (1.003-1.022); Urobilinogen, Urine 1+ (Normal)
--- NOTE | 2025-01-11 05:05 | NUR ---
SHIFT SUMMARY 64 YR M ADMITTED TO MED FLOOR THIS SHIFT. FULL CODE. PT C/O OF UPPER GASTRIC PAIN AND MEDICATED PER EMAR. NO N/V SINCE ARRIVING TO THIS FLOOR. HE IS A&O X 4 AND INDEPENDANT. UA FOR TOX SCREEN WAS COLLECTED AND SENT TO THE LAB. PT HAS BEEN PLEASANT AND COOPERATIVE. CALLS APPROPRIATELY. WILL CONTINUE TO MONITOR.BED IN LOW POSITON AND CALL LIGHT IN REACH.
[2025-01-11 05:31] LABS: BASOPHILS ABSOLUTE AUTO 0.11 K/mm3 (0.00-0.23); BASOPHILS PERCENT AUTO 1 % (0-2); EOSINOPHILS ABSOLUTE AUTO 0.03 K/mm3 (0.00-0.68); EOSINOPHILS PERCENT AUTO 0 % (0-6); Hematocrit 44.9 % (37.0-53.0); Hemoglobin 13.6 g/dL (13.5-17.5); IMMATURE GRAN ABSOLUTE AUTO 0.16 K/mm3 (0.00-0.10); IMMATURE GRAN PERCENT AUTO 1 % (0-1); LYMPHOCYTES PERCENT AUTO 4 % (21-46); MONOCYTES ABSOLUTE AUTO 0.97 K/mm3 (0.16-1.47); MONOCYTES PERCENT AUTO 5 % (4-13); Mean Corpuscular HGB 24.5 pg (26.0-34.0); Mean Corpuscular HGB Conc 30.3 g/dL (31.5-36.5); Mean Corpuscular Volume 81 fL (80-100); Mean Platelet Volume 10.5 fL (9.1-12.4); NEUTROPHILS ABSOLUTE AUTO 16.33 K/mm3 (1.96-9.15); NEUTROPHILS PERCENT AUTO 89 % (41-73); Platelet Count 242 K/mm3 (150-400); RDW Coefficient Variation 15.3 % (11.7-14.2); RDW Standard Deviation 44.9 fL (35.1-46.3); Red Blood Cell Count 5.56 M/mm3 (4.30-5.90)
[2025-01-11 05:32] LABS: Albumin, Blood 3.8 g/dL (3.4-5.0); Albumin/Globulin Ratio 0.8 (0.8-1.8); Bilirubin, Total 0.4 mg/dL (0.1-1.0); Calcium, Blood 8.8 mg/dL (8.5-10.1); Creatinine, Blood 0.75 mg/dL (0.60-1.20); Globulin, Blood 4.6 g/dL (2.2-4.0); Potassium, Blood 3.7 mmol/L (3.5-5.5); Total Protein, Blood 8.4 g/dL (6.4-8.2)
[2025-01-11 05:33] LABS: U Amphetamine Screen Not Detected; U Barbituate Screen Not Detected; U Benzodiazapine Screen Not Detected; U Buprenorphine Screen Not Detected; U Cannabinoids Screen Not Detected; U Cocaine Screen Not Detected; U Methadone Screen Not Detected; U Methamphetamine Screen Not Detected; U Opiates Screen DETECTED; U Oxycodone Screen Not Detected; U Phencyclidine Screen Not Detected
[2025-01-11 05:34] LABS: Appearance, Urine Clear (Clear); Color, Urine Yellow (P-Yellow)
[2025-01-11] MEDS ORDERED: Insulin Human Lispro 100 Units/ML 3ML Syringe SC SCH (07:30)
[2025-01-11] MEDS ORDERED: Famotidine 10 MG/ML 2ML Vial IV SCH (09:00)
[2025-01-11] MEDS ORDERED: Enoxaparin 40 MG/0.4 ML SYR SC SCH (09:00)
[2025-01-11] MEDS ORDERED: CefTRIAXone Sodium 1,000 MG in NS 100 ML IV SCH (11:00)
--- NOTE | 2025-01-11 11:35 | NUR ---
UPDATE NG TUBE PLACED 01/11/25 AT 1030. PATIENT TOLERATED WELL. LIS CONNECTED. LIGHT BROWN OUTPUT.
[2025-01-11] MEDS ORDERED: ALBU90OI INH (12:39)
[2025-01-11] MEDS ORDERED: LIPITOR80 MG PO (12:40)
[2025-01-11] MEDS ORDERED: IPRAT-ALBUT 0.5-3 ML INH (12:40)
[2025-01-11] MEDS ORDERED: Indocyanine Green 25 MG Vial IV STA (13:34)
[2025-01-11] MEDS ORDERED: Bupivacaine 0.5% W/EPI 1:200000 SDV 30 ML Vial ONE (13:50)
[2025-01-11] MEDS ORDERED: Ipratropium/Albuterol SulF 2.5-0.5MG/3 ML Amp INH ONE (14:05)
[2025-01-11] MEDS ORDERED: SuccINYLCHOLINE Chloride 100 MG/5 ML 5MLSYR ONE (14:08)
[2025-01-11] MEDS ORDERED: Rocuronium Bromide 10 MG/ML 5ML Injection IV ONE ×2 (14:08→15:35)
[2025-01-11] MEDS ORDERED: Dexamethasone Sod Phos 10 MG/ML 1ML VIAL ONE (14:08)
[2025-01-11] MEDS ORDERED: Ondansetron HCl 2 MG / ML 2ML Vial ONE (14:08)
[2025-01-11] MEDS ORDERED: propofoL 20 ML IV ONE ×2 (14:09→14:13)
[2025-01-11] MEDS ORDERED: Phenylephrine HCl 100 MCG/ML-NS 10MLSYR (1MG/10ML) ONE (14:14)
--- NOTE | 2025-01-11 14:32 | NUR ---
2760 PATIENT TO OR
[2025-01-11] MEDS ORDERED: FentaNYL Citrate 50 MCG/ML 5 ML Injection ONE (15:04)
[2025-01-11] MEDS ORDERED: HYDROmorphone HCl/Pf 1MG SYR ONE ×2 (16:08→17:40)
[2025-01-11] MEDS ORDERED: Sugammadex Sodium 200 MG/2ML SDV (100 MG/ML) ONE (16:20)
[2025-01-11] MEDS ORDERED: Piperacillin/Tazobactam Sod 3.375 GM in NS 100 ML IV SCH (18:00)
--- NOTE | 2025-01-11 18:19 | NUR ---
PATIENT JUST BACK FROM GALLBLADDER REMOVAL, NO SBO FOUND, 6 INCISION SITES CLOSED WITH DURABOND, PATIENT CONFUSED, WAS MEDICATED WITH DILAUDID BEFORE COMING BACK TO THE FLOOR, BED ALARM ON, CALL LIGHT WITH IN REACH
[2025-01-12 00:25] VITALS: BP 122/76
--- NOTE | 2025-01-12 04:05 | NUR ---
SHIFT SUMMARY PT STATES HE IS FEELING MUCH BETTER SINCE HAVING SURGERY. HE HAS BEEN A&O X 4 FOR ENTIRETY OF THIS SHIFT...NO OBVIOUS LINGERING AFFECTS FROM ANESTHESIA. HE HAS HAD A COUPLE CUPS OF BEEF BROTH AND STATES HE IS HUNGRY FOR "REAL" FOOD AND IS LOOKING FORWARD TO ADVANCING HIS DIET. VSS. HE HAS SLEPT OFF AND ON THROUGHOUT THE NIGHT. MEDICATED ONCE FOR PAIN WITH GOOD RESULTS. WILL CONTINUE TO MONITOR. BED IN LOW POSITION AND CALL LIGHT IN REACH.
[2025-01-12 04:19] VITALS: BP 106/84
[2025-01-12 05:55] LABS: Hematocrit 36.4 % (37.0-53.0); Hemoglobin 11.2 g/dL (13.5-17.5); Mean Corpuscular HGB 24.9 pg (26.0-34.0); Mean Corpuscular HGB Conc 30.8 g/dL (31.5-36.5); Mean Corpuscular Volume 81 fL (80-100); Mean Platelet Volume 10.3 fL (9.1-12.4); Platelet Count 278 K/mm3 (150-400); RDW Coefficient Variation 15.5 % (11.7-14.2); RDW Standard Deviation 46.1 fL (35.1-46.3); Red Blood Cell Count 4.49 M/mm3 (4.30-5.90)
[2025-01-12 06:17] LABS: Bun/Creatinine Ratio 13.6 (12.0-20.0); Calcium, Blood 8.4 mg/dL (8.5-10.1); Creatinine, Blood 0.81 mg/dL (0.60-1.20); Potassium, Blood 4.2 mmol/L (3.5-5.5)
[2025-01-12 07:38] VITALS: BP 112/69
[2025-01-12] MEDS ORDERED: Enoxaparin 40 MG/0.4 ML SYR SC SCH (09:00)
[2025-01-12] MEDS ORDERED: rOPINIRole HCl 1 MG Tab PO PRN (10:15)
[2025-01-12] MEDS ORDERED: OxyCODONE HCL 5 MG TAB PO PRN (10:45)
[2025-01-12] MEDS ORDERED: Ipratropium/Albuterol SulF 2.5-0.5MG/3 ML Amp INH PRN (10:45)
[2025-01-12] MEDS ORDERED: Losartan Potassium 25 MG Tab PO SCH (10:53)
[2025-01-12] MEDS ORDERED: Albuterol HFA200 ACT/6.7 GM INH INH PRN (10:55)
[2025-01-12] MEDS ORDERED: [UNRECOGNIZED DRUG - OTHER] INH SCH (10:55)
[2025-01-12] MEDS ORDERED: Atorvastatin 40 MG Tab PO SCH (11:00)
[2025-01-12] MEDS ORDERED: DULoxetine HCL 60 MG Capsule DR PO SCH (11:00)
[2025-01-12 11:19] VITALS: BP 126/82
[2025-01-12] MEDS ORDERED: Gabapentin 300 MG Cap PO SCH (14:00)
[2025-01-12 16:11] VITALS: BP 129/75
[2025-01-12] MEDS ORDERED: MetFORMIN HCl 500 mg PO SCH ×2 (17:00)
--- NOTE | 2025-01-12 18:24 | NUR ---
NO ACUTE CHANGES, ALERT AND ORIENTED X4, CLEARLY MAKES NEEDS KNOWN, COOPERATIVE TO CARE, DIET ADVANCED, 6 SITES VDI AND INTACT WITH DURABOND, MEDICATED FOR PAIN AND RLS, WILL RLEAY TO PM RN, CALL LIGHT WITH IN REACH
[2025-01-12 19:46] VITALS: BP 120/79
[2025-01-12] MEDS ORDERED: Montelukast Sodium 10 MG Tab PO SCH (21:00)
[2025-01-13] MEDS ORDERED: NS 250 ML IV PRN (00:35)
[2025-01-13 04:22] VITALS: BP 130/90
--- NOTE | 2025-01-13 04:31 | NUR ---
Shift Summary Pt c/o moderate upper abd pain, medicated per emar. Bowel sounds in lower quadrants are absent or very faint. No BM for the last 2 days. Pt has a productive cough. He is AOx4, continent, independent in the room. Incision sites are C/D/I, no drainage, sealed with durabond.
[2025-01-13] MEDS ORDERED: Omeprazole 20 MG CapCR PO SCH (06:00)
[2025-01-13 07:19] VITALS: BP 144/91
[2025-01-13 08:19] LABS: Hematocrit 32.5 % (37.0-53.0); Hemoglobin 9.9 g/dL (13.5-17.5); Mean Corpuscular HGB 24.9 pg (26.0-34.0); Mean Corpuscular HGB Conc 30.5 g/dL (31.5-36.5); Mean Corpuscular Volume 82 fL (80-100); Mean Platelet Volume 10.4 fL (9.1-12.4); Platelet Count 238 K/mm3 (150-400); RDW Coefficient Variation 15.7 % (11.7-14.2); RDW Standard Deviation 46.5 fL (35.1-46.3); Red Blood Cell Count 3.98 M/mm3 (4.30-5.90); White Blood Cell Count 11.67 K/mm3 (4.00-11.30)
[2025-01-13] MEDS ORDERED: Fluticasone 0.05% Nasal Spray SCH (09:00)
[2025-01-13] MEDS ORDERED: Sertraline HCl 50 MG Tab PO SCH (09:00)
[2025-01-13] MEDS ORDERED: Magnesium Hydroxide Conc 10 ML UDC PO ONE (11:00)
[2025-01-13 15:38] VITALS: BP 157/96
[2025-01-13] MEDS ORDERED: Polyethylene Glycol 3350 17 gm PO SCH (16:00)
--- NOTE | 2025-01-13 17:50 | NUR ---
SHIFT SUMMARY PT A&OX4, VSS, AMB IND, TOLERATING PO, AND DENIED PAIN. LR CONT TO INFUSE PER ORDER. PT DID NOT HAVE BM THIS SHIFT DESPITE BOWEL CARE. NO OTHER ACUTE CHANGES. CALL LIGHT WITHIN REACH AND PT ABLE TO MAKE NEEDS KNOWN.
[2025-01-13 20:38] VITALS: BP 111/86
[2025-01-13] MEDS ORDERED: Docusate Sodium 100 MG Cap PO SCH (21:00)
[2025-01-14 05:38] VITALS: BP 149/96
--- NOTE | 2025-01-14 06:43 | NUR ---
Shift Summary No BM this shift, pt rcving bowel care medications. Tolerating regular diet well, no c/o of GI issues except pain on one of the L incision sites and constipation. Pt rcving IV ABX and LR. AOx4, ind in the room.
[2025-01-14 08:07] VITALS: BP 147/91
[2025-01-14] MEDS ORDERED: DOCU100 PO (11:11)
[2025-01-14] MEDS ORDERED: VISBIOME 112.51 EACH PO (11:11)
[2025-01-14] MEDS ORDERED: AMOCLA875 PO (11:12)
--- NOTE | 2025-01-14 11:55 | NUR ---
SHIFT/DISCHARGE SUMMARY: PATIENT HAS HAD NO NEW CHANGES THIS SHIFT. PATIENT HAS 6 SMALL INCISION ACROSS ABDOMEN c NO S/S OF INFECTION OR DRAINAIGE NOTED. PATIENT HAD LARGE BM THIS SHIFT. PATIENT DENIES CP/PRESSURE, SOB, N/V AND DIZZINESS. PATIENT RECEIVED SCHEDULED MEDS PER EMAR. PATIENT HAS GOOD APPETITE, CONTINENT OF BOWEL/BLADDER AND AMBULATES TO BATHROOM INDEPENDENTLY. VITAL SIGNS REVIEWED. PIV DC'D BY EARLINE PLAZA. PATIENT DISCHARGE HOME. DISCHARGE INSTRUCTIONS PACKET GIVEN TO PATIENT. PATIENT EDUCATED c ADMITTING DX'S OF SBO, [place] INCISION CARE, NEW RX AND TO F/U c PCP. PATIENT VERBALIZED UNDERSTANDING AND NO FURTHER QUESTIONS. PATIENT RX WAS FAXED TO PATIENT PREFERRED PHARMACY ([facility]). OXYCODONE HARD SCRIPT GIVEN TO PATIENT. ALL PERSONAL BELONGINGS WERE SENT HOME c THE PATIENT. PATIENT DECLINED TO BE TRANSPORTED VIA W/CHAIR AND REQUESTED TO WALK BY HIMSELF. PATIENT LEFT THE ROOM AT 1154.
== END 2025-01-14 11:30 | disposition home or self-care (01) | DRG 854 ==
LOC: ER 22:14 → MEDS 01-11 01:36 → ER 01-11 01:36 → SURS 01-11 01:36 → MEDS 01-11 01:37 → SURS 01-11 03:42 → MEDS 01-11 03:42
PROVIDERS: Internal Medicine; Student in an Organized Health Care Education/Training Program; Surgery; ADMIT Student in an Organized Health Care Education/Training Program
PROC: BF522Z0 Other Imaging of Gallbladder using Fluorescing Agent, Intraoperative (ICD-10-PCS; 2025-01-11)
PROC: 8E0W4CZ Robotic Assisted Procedure of Trunk Region, Percutaneous Endoscopic Approach (ICD-10-PCS; 2025-01-11)
PROC: 3E03329 Introduction of Other Anti-infective into Peripheral Vein, Percutaneous Approach (ICD-10-PCS; 2025-01-11)
PROC: 0FT44ZZ Resection of Gallbladder, Percutaneous Endoscopic Approach (ICD-10-PCS; principal; 2025-01-11 14:00)
DX: A41.9 Sepsis, unspecified organism (principal); K81.0 Acute cholecystitis; K82.A1 Gangrene of gallbladder in cholecystitis; I10 Essential (primary) hypertension; J44.9 Chronic obstructive pulmonary disease, unspecified; E11.40 Type 2 diabetes mellitus with diabetic neuropathy, unspecified; I25.10 Atherosclerotic heart disease of native coronary artery without angina pectoris; E78.5 Hyperlipidemia, unspecified; G47.30 Sleep apnea, unspecified; K21.9 Gastro-esophageal reflux disease without esophagitis; G25.81 Restless legs syndrome; Z96.611 Presence of right artificial shoulder joint; E66.9 Obesity, unspecified; Z88.8 Allergy status to other drugs, medicaments and biological substances; Z79.899 Other long term (current) drug therapy; Z79.84 Long term (current) use of oral hypoglycemic drugs; Z79.51 Long term (current) use of inhaled steroids; Z68.32 Body mass index [BMI] 32.0-32.9, adult
CPT/HCPCS: 36415; 71046; 74177; 76705; 80048; 80053; 81003; 82947; 83690; 83880; 84484; 85025; 85027; 88304; 93005; 93010; 94640; 94664; 94760; 96361; 96365; 96366; 96367; 96372; 96374-59; 96375; 96376; 99285-25; A9270; G0378; J0330; J0696; J1100; J1171; J1650; J2270; J2371; J2405; J2543; J2704; J2765; J3010; J7050; J7120; Q9967

== ENCOUNTER 2025-02-24 20:27 | Observation (INO) | payer MEDICARE ==
[~2025-02-24] VITALS: Ht 180.3 cm; Wt 109.3 kg
[~2025-02-24 20:27] MED LIST changes: +DOCU100 PO; +EPINEPHRIN0.3 MG/0.1 IM; +FLUTICASONE-SA1 EA12 INH; +IBUP600 PO; +IPRAT-ALBUT 0.5-3 ML INH; +LIPITOR80 MG PO; +LOSA50 PO; +OXYC5 PO; +ROPINIROLE HCL1 MG PO; +TIOT18 INH; +TRELEGY ELLIPT1 EAC1 INH; +VISBIOME 112.51 EACH PO
[2025-02-24] MEDS ORDERED: Ketorolac Tromethamine 30mg Vial IV ONE (22:15)
[2025-02-24 22:31] LABS: BASOPHILS PERCENT AUTO 1 % (0-2); EOSINOPHILS ABSOLUTE AUTO 0.19 K/mm3 (0.00-0.68); EOSINOPHILS PERCENT AUTO 3 % (0-6); Hematocrit 38.6 % (37.0-53.0); IMMATURE GRAN ABSOLUTE AUTO 0.02 K/mm3 (0.00-0.10); IMMATURE GRAN PERCENT AUTO 0 % (0-1); LYMPHOCYTES ABSOLUTE AUTO 1.42 K/mm3 (0.84-5.20); LYMPHOCYTES PERCENT AUTO 20 % (21-46); MONOCYTES ABSOLUTE AUTO 0.45 K/mm3 (0.16-1.47); MONOCYTES PERCENT AUTO 6 % (4-13); Mean Corpuscular HGB 24.6 pg (26.0-34.0); Mean Corpuscular HGB Conc 31.1 g/dL (31.5-36.5); Mean Corpuscular Volume 79 fL (80-100); Mean Platelet Volume 9.6 fL (9.1-12.4); NEUTROPHILS ABSOLUTE AUTO 4.95 K/mm3 (1.96-9.15); NEUTROPHILS PERCENT AUTO 69 % (41-73); Platelet Count 337 K/mm3 (150-400); RDW Coefficient Variation 14.9 % (11.7-14.2); RDW Standard Deviation 42.5 fL (35.1-46.3); Red Blood Cell Count 4.87 M/mm3 (4.30-5.90); White Blood Cell Count 7.13 K/mm3 (4.00-11.30)
[2025-02-24 22:49] LABS: Ethanol (Alcohol), Blood, Med 155 mg/dL; Salicylate <1.7 mg/dL (2.8-20.0)
[2025-02-24 22:57] LABS: Acetaminophen, Random <2.0 ug/mL (10.0-30.0); Alanine Aminotransfer (ALT/SGP 16 U/L (12-78); Albumin, Blood 3.4 g/dL (3.4-5.0); Albumin/Globulin Ratio 0.8 (0.8-1.8); Alk Phos 162 U/L (50-136); Anion Gap 10 mmol/L (3-11); Aspartate Aminotrans (AST/SGOT 16 U/L (12-37); Bilirubin, Total 0.2 mg/dL (0.1-1.0); Blood Urea Nitrogen 7 mg/dL (8-24); Bun/Creatinine Ratio 8.9 (12.0-20.0); CO2, Blood 23 mmol/L (21-32); Calcium, Blood 7.9 mg/dL (8.5-10.1); Chloride, Blood 108 mmol/L (98-108); Creatinine, Blood 0.79 mg/dL (0.60-1.20); Glomerular Filtration Rate 98 (60-); Glucose, Blood 121 mg/dL (70-99); Potassium, Blood 3.8 mmol/L (3.5-5.5); Sodium, Blood 137 mmol/L (136-145); Total Protein, Blood 7.4 g/dL (6.4-8.2)
[2025-02-24] MEDS ORDERED: Morphine Sulfate 4 MG/1 ML Injection IV ONE (23:15)
[2025-02-24 23:52] LABS: Source, Urine Clean Catch
[2025-02-24 23:55] LABS: Bilirubin, Urine Neg (Neg); Blood, Urine Neg (Neg); Glucose Qualitative, Urine Neg (Neg); Ketones, Urine Neg (Neg); Leukocyte Esterase, Urine Neg (Neg); Nitrite, Urine Neg (Neg); Protein, Urine Neg (Neg); Specific Gravity, Urine 1.005 (1.003-1.022); Urobilinogen, Urine NORM (Normal)
[2025-02-25 00:05] LABS: Appearance, Urine Clear (Clear); Color, Urine Pale Yellow (P-Yellow)
[2025-02-25 00:19] LABS: U Amphetamine Screen Not Detected; U Barbituate Screen Not Detected; U Benzodiazapine Screen Not Detected; U Buprenorphine Screen Not Detected; U Cannabinoids Screen Not Detected; U Cocaine Screen Not Detected; U Methadone Screen Not Detected; U Methamphetamine Screen Not Detected; U Opiates Screen DETECTED; U Oxycodone Screen Not Detected; U Phencyclidine Screen Not Detected
[2025-02-25] MEDS ORDERED: HYDROcodone 5-APAP 325 TAB PO PRN ×2 (00:50→09:45)
[2025-02-25] MEDS ORDERED: rOPINIRole HCl 1 MG Tab PO ONE ×2 (00:55→10:35)
[2025-02-25] MEDS ORDERED: Ondansetron HCl 2 MG / ML 2ML Vial IV PRN (09:45)
[2025-02-25] MEDS ORDERED: Ibuprofen 600 MG Tab PO PRN (09:45)
[2025-02-25] MEDS ORDERED: Ipratropium/Albuterol SulF 2.5-0.5MG/3 ML Amp INH PRN (09:50)
[2025-02-25] MEDS ORDERED: Losartan Potassium 25 MG Tab PO ONE ×2 (10:35→14:25)
[2025-02-25] MEDS ORDERED: Sertraline HCl 50 MG Tab PO ONE (10:35)
[2025-02-25] MEDS ORDERED: MetFORMIN HCl 500 mg PO ONE (10:35)
[2025-02-25] MEDS ORDERED: Gabapentin 300 MG Cap PO ONE (10:35)
[2025-02-25] MEDS ORDERED: Albuterol HFA200 ACT/6.7 GM INH INH PRN (10:35)
[2025-02-25] MEDS ORDERED: DULoxetine HCL 30 MG Cap DR PO ONE (10:35)
[2025-02-25] MEDS ORDERED: Mometasone/Formoterol MDI 200/5 mcg 13 GM INH SCH (10:55)
[2025-02-25] MEDS ORDERED: Insulin Regular 100 UNIT/ML 10ML Vial SC SCH (11:30)
[2025-02-25] MEDS ORDERED: ChlordiazePOXIDE 25 MG Cap PO PRN (13:25)
[2025-02-25] MEDS ORDERED: LORazepam 2 MG/ML 1ML Injection IV PRN (13:30)
[2025-02-25] MEDS ORDERED: Gabapentin 300 MG Cap PO SCH (14:00)
[2025-02-25] MEDS ORDERED: Thiamine HCl 250 MG in NS 100 ML IV SCH (14:00)
[2025-02-25] MEDS ORDERED: rOPINIRole HCl 1 MG Tab PO SCH ×3 (14:00→21:00)
[2025-02-25 14:11] VITALS: BP 162/99
[2025-02-25] MEDS ORDERED: DULoxetine HCL 60 MG Capsule DR PO ONE (14:25)
[2025-02-25] MEDS ORDERED: NS 250 ML IV PRN (15:15)
[2025-02-25] MEDS ORDERED: MetFORMIN HCl 500 mg PO SCH (17:00)
--- NOTE | 2025-02-25 18:29 | NUR ---
SHIFT SUMMARY PT ADMITTED FROM ED THIS SHIFT TO ROOM 348 FOR SUICIDE ATTEMPT. PT NOTED TO BE A&OX4 AND IND WITH AMBULATION. PT DENIES WANTING TO HARM HIM SELF AT THIS TIME AND STATED HE WAS JUST IN A BAD PLACE YESTERDAY. 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 PT NOTED TO HAVE A SPLINT TO R ARM AND ARM IN A SLING D/T FX HUMERERUS. PT HAS A 1:1 SITTER IN ROOM. PT NOTED TO BE COOPERATIVE WITH CARES AND STAFF.
[2025-02-25 19:19] VITALS: BP 165/93
[2025-02-25] MEDS ORDERED: Docusate Sodium 100 MG Cap PO SCH (21:00)
[2025-02-25] MEDS ORDERED: Sennosides 8.6 MG Tab PO SCH (21:00)
[2025-02-25] MEDS ORDERED: Montelukast Sodium 10 MG Tab PO SCH ×2 (21:00)
[2025-02-25] MEDS ORDERED: Lithium Carbonate 450 MG TabCR PO SCH (21:00)
[2025-02-26 03:32] VITALS: BP 123/78
[2025-02-26 05:58] LABS: BASOPHILS PERCENT AUTO 1 % (0-2); EOSINOPHILS ABSOLUTE AUTO 0.48 K/mm3 (0.00-0.68); EOSINOPHILS PERCENT AUTO 6 % (0-6); Hematocrit 37.2 % (37.0-53.0); Hemoglobin 11.3 g/dL (13.5-17.5); IMMATURE GRAN ABSOLUTE AUTO 0.01 K/mm3 (0.00-0.10); IMMATURE GRAN PERCENT AUTO 0 % (0-1); LYMPHOCYTES PERCENT AUTO 26 % (21-46); MONOCYTES ABSOLUTE AUTO 0.95 K/mm3 (0.16-1.47); MONOCYTES PERCENT AUTO 11 % (4-13); Mean Corpuscular HGB 24.3 pg (26.0-34.0); Mean Corpuscular HGB Conc 30.4 g/dL (31.5-36.5); Mean Corpuscular Volume 80 fL (80-100); Mean Platelet Volume 9.3 fL (9.1-12.4); NEUTROPHILS ABSOLUTE AUTO 4.65 K/mm3 (1.96-9.15); NEUTROPHILS PERCENT AUTO 56 % (41-73); Platelet Count 306 K/mm3 (150-400); RDW Coefficient Variation 14.8 % (11.7-14.2); RDW Standard Deviation 43.2 fL (35.1-46.3); Red Blood Cell Count 4.65 M/mm3 (4.30-5.90); White Blood Cell Count 8.39 K/mm3 (4.00-11.30)
[2025-02-26] MEDS ORDERED: Omeprazole 20 MG CapCR PO SCH (06:00)
[2025-02-26 06:23] LABS: Anion Gap 9 mmol/L (3-11); Blood Urea Nitrogen 16 mg/dL (8-24); Bun/Creatinine Ratio 18.1 (12.0-20.0); CHOL/HDL RATIO 3.3; CO2, Blood 27 mmol/L (21-32); Calcium, Blood 8.6 mg/dL (8.5-10.1); Chloride, Blood 104 mmol/L (98-108); Cholesterol 127 mg/dL (50-200); Creatinine, Blood 0.89 mg/dL (0.60-1.20); Glomerular Filtration Rate 95 (60-); Glucose, Blood 105 mg/dL (70-99); HDL Cholesterol 39 mg/dL (>39); LDL/HDL RATIO 1.3; Low Density Lipoprotein Chol 52 mg/dL (0-110); Potassium, Blood 3.9 mmol/L (3.5-5.5); Sodium, Blood 136 mmol/L (136-145); Triglycerides 181 mg/dL (30-160); Very Low Density Lipoprot Chol 36 mg/dL (6-32)
[2025-02-26 07:40] VITALS: BP 141/85
[2025-02-26] MEDS ORDERED: Enoxaparin 40 MG/0.4 ML SYR SC SCH (09:00)
[2025-02-26] MEDS ORDERED: Atorvastatin 40 MG Tab PO SCH (09:00)
[2025-02-26] MEDS ORDERED: Losartan Potassium 25 MG Tab PO SCH (09:00)
[2025-02-26] MEDS ORDERED: DULoxetine HCL 30 MG Cap DR PO SCH (09:00)
[2025-02-26] MEDS ORDERED: Losartan Potassium 50 MG Tab PO SCH (09:00)
[2025-02-26] MEDS ORDERED: DULoxetine HCL 60 MG Capsule DR PO SCH (09:00)
[2025-02-26] MEDS ORDERED: Fluticasone 0.05% Nasal Spray SCH (09:00)
[2025-02-26] MEDS ORDERED: MetFORMIN HCl 500 mg PO SCH (09:00)
[2025-02-26] MEDS ORDERED: Folic Acid 1 MG TAB PO SCH (09:00)
[2025-02-26] MEDS ORDERED: Sertraline HCl 50 MG Tab PO SCH ×2 (09:00)
[2025-02-26] MEDS ORDERED: Insulin Human Lispro 100 Units/ML 3ML Syringe SC SCH (11:30)
[2025-02-26] MEDS ORDERED: AmLODIPine Besylate 5 MG Tab PO SCH (12:00)
[2025-02-26 12:06] LABS: Free Thyroxine 0.89 ng/dL (0.70-1.60)
[2025-02-26 12:08] LABS: Triiodothyronine, Free 2.18 pg/mL (2.18-3.98)
[2025-02-26 12:19] VITALS: BP 139/82
[2025-02-26 16:35] VITALS: BP 159/97
--- NOTE | 2025-02-26 17:22 | NUR ---
SHIFT SUMMARY PT CONT LEVEL OF CARE WITH NO ACUTE CHANGES NOTED. PT CONT TO REMAIN ON A PSYCHIATRIC HOLD WITH A 1:1 SITTER AT THIS TIME. PT NOTED TO BE BE COOPERATIVE WITH CARES.
[2025-02-26 19:16] VITALS: BP 157/91
[2025-02-27 03:27] VITALS: BP 161/91
[2025-02-27 06:51] LABS: Albumin, Blood 2.8 g/dL (3.4-5.0); Albumin/Globulin Ratio 0.8 (0.8-1.8); Bilirubin, Total 0.3 mg/dL (0.1-1.0); Bun/Creatinine Ratio 17.9 (12.0-20.0); Calcium, Blood 8.1 mg/dL (8.5-10.1); Creatinine, Blood 0.73 mg/dL (0.60-1.20); Globulin, Blood 3.5 g/dL (2.2-4.0); Total Protein, Blood 6.3 g/dL (6.4-8.2)
[2025-02-27 07:07] VITALS: BP 141/95
[2025-02-27] MEDS ORDERED: Thiamine HCl 100 MG Tab PO SCH (09:00)
[2025-02-27 15:35] VITALS: BP 144/91
[2025-02-27] MEDS ORDERED: Nicotine Polacrilex 2 MG Gum PO PRN (17:15)
--- NOTE | 2025-02-27 18:29 | NUR ---
SHIFT SUMMARY PT CONT LEVEL OF CARE. ORTHO CONSULT PLACED THIS MORNING AND ORTHO STOPPED D/T PT SPLINT BE LOOSE. ORTHO ORDERED A BRACE WHICH WILL BE HERE TOMORROW AND PLACED AROUND 0700. PT CONT TO REMAIN ON A HOLD BUT DENIES ANY SUICIDAL IDEALTATIONS AT THIS TIME. HE STATES "HE FEELS MUCH BETTER MENTALLY AND IS IN A BETTER HEAD SPACE." PT CONT TO VOICE C/O PAIN PRN MEDS GIVEN SEE MAR FOR DETAILS.
[2025-02-27 19:58] VITALS: BP 156/97
[2025-02-28 03:35] VITALS: BP 149/98
[2025-02-28] MEDS ORDERED: Levothyroxine Sodium 0.025 MG Tab PO SCH (06:00)
[2025-02-28 07:10] VITALS: BP 151/87
[2025-02-28 09:43] LABS: Lithium 0.26 mmol/L (0.60-1.20)
[2025-02-28] MEDS ORDERED: AmLODIPine Besylate 5 MG Tab PO ONE (11:10)
[2025-02-28] MEDS ORDERED: Ibuprofen 400 MG Tab PO PRN (11:40)
[2025-02-28] MEDS ORDERED: HYDROcodone 5-APAP 325 TAB PO PRN (11:40)
[2025-02-28 13:12] LABS: CORONAVIRUS COVID-19 AG Negative (NEGATIVE)
[2025-02-28 15:25] VITALS: BP 129/84
[2025-02-28] MEDS ORDERED: DiphenhydrAMINE HCL 25 MG Cap PO ONE (16:20)
[2025-02-28 16:30] LABS: CORONAVIRUS COVID-19 AG Negative (NEGATIVE); INFLUENZA A AG Negative (NEGATIVE); INFLUENZA B AG Negative (NEGATIVE)
--- NOTE | 2025-02-28 17:11 | NUR ---
SHIFT NOTE: PT A/OX4 ABLE TO MAKE HIS NEEDS KNOWN. NEW BRACE PLACED THIS AM AND PT REPORTS IT IS MORE COMFORTABLE THAN THE LAST ONE. HE ENDORSES PAIN WHEN THE ARM IS MOVED. HE DENIES CURRENT SI IDEALATION, 1:1 SITTER REMAINS FOR SAFETY. PLAN TO [place] 03/01 AT 0900. CARE CONTINUES
[2025-02-28 19:24] VITALS: BP 156/103
[2025-03-01 03:06] VITALS: BP 134/94
--- NOTE | 2025-03-01 04:25 | NUR ---
PT A&O X4, VS WNL, PT WITH NO SUICIDE PLAN AT THIS TIME. WITH SITTER AT BEDSIDE, REMAINS ON HIGH ALERT. PLAN TO DISCHARGE TO INPATIENT PSYCHIATRIC CARE AT 0900 THIS DAY. PT VOIDS WITHOUT ISSUE, AND HAD BM THIS AM. PAIN NOTED IN RUE, SPLINT ON INDEPENDENTLY, AND MEDICATED X2 WITH NORCO AND ADVIL. SUICIDE ASSESSMENT PLACES PT AT NO CURRENT RISK.
[2025-03-01 06:14] LABS: BASOPHILS ABSOLUTE AUTO 0.07 K/mm3 (0.00-0.23); BASOPHILS PERCENT AUTO 1 % (0-2); EOSINOPHILS ABSOLUTE AUTO 0.56 K/mm3 (0.00-0.68); EOSINOPHILS PERCENT AUTO 8 % (0-6); Hematocrit 35.4 % (37.0-53.0); Hemoglobin 10.9 g/dL (13.5-17.5); IMMATURE GRAN ABSOLUTE AUTO 0.01 K/mm3 (0.00-0.10); IMMATURE GRAN PERCENT AUTO 0 % (0-1); LYMPHOCYTES ABSOLUTE AUTO 1.27 K/mm3 (0.84-5.20); LYMPHOCYTES PERCENT AUTO 18 % (21-46); MONOCYTES ABSOLUTE AUTO 0.55 K/mm3 (0.16-1.47); MONOCYTES PERCENT AUTO 8 % (4-13); Mean Corpuscular HGB 24.8 pg (26.0-34.0); Mean Corpuscular HGB Conc 30.8 g/dL (31.5-36.5); Mean Corpuscular Volume 81 fL (80-100); Mean Platelet Volume 9.4 fL (9.1-12.4); NEUTROPHILS ABSOLUTE AUTO 4.58 K/mm3 (1.96-9.15); NEUTROPHILS PERCENT AUTO 65 % (41-73); Platelet Count 265 K/mm3 (150-400); RDW Coefficient Variation 14.7 % (11.7-14.2); RDW Standard Deviation 42.5 fL (35.1-46.3); White Blood Cell Count 7.04 K/mm3 (4.00-11.30)
--- NOTE | 2025-03-01 06:39 | NUR ---
PSYCHIATRIC FACILITY CALLED THIS AM AT APPROXIMATELY 0600, REPORT GIVEN AND INFO PASSED ON ON TRANSPORT TIME.
[2025-03-01 06:42] LABS: Bun/Creatinine Ratio 17.9 (12.0-20.0); Calcium, Blood 8.2 mg/dL (8.5-10.1); Creatinine, Blood 0.67 mg/dL (0.60-1.20)
[2025-03-01 07:35] VITALS: BP 134/92
[2025-03-01 07:36] VITALS: BP 134/92
[2025-03-01 07:44] VITALS: BP 134/92
[2025-03-01] MEDS ORDERED: AmLODIPine Besylate 5 MG Tab PO SCH (09:00)
--- NOTE | 2025-03-01 09:12 | NUR ---
DISCHARGE/TRANSFER MR UGARTE HAD MEDICAL TRANSPORT PICK HIM UP AT 0905 TO GO TO [facility]. SIDEWALK REPAIRER NURSE SAID THAT SHE ALREADY GAVE REPORT EARLY THIS MORNING. [facility] AT [facility] CALLED AND NOTIFIED OF TIME OF TRANSPORT AND PRN MEDS GIVEN. NORCO GIVEN EARLY AT 0824 WITH TELEPHONE ORDER OK TO GIVE EARLY BY DR PISANO. PIV REMOVED PRIOR TO TRANSPORT. MR UGARTE WAS CALM THIS MORNING, HE DENIED FEELING SUICIDAL THIS MORNING. RIGHT ARM SWOLLEN IN SLING. R HAND SWOLLEN. STRONG RADIAL PULSE, PT DENIED ANY NUMBNESS OR TINGLING TO RIGHT HAND/FINGERS.
== END 2025-03-01 09:06 ==
LOC: ER 20:27 → MEDS 20:28 → EOR 20:28 → ER 20:28 → MEDS 02-25 13:43
PROVIDERS: Hospitalist; Internal Medicine; Student in an Organized Health Care Education/Training Program; ADMIT Emergency Medicine
DX: F33.2 Major depressive disorder, recurrent severe without psychotic features (principal); T71.162A Asphyxiation due to hanging, intentional self-harm, initial encounter; S42.351A Displaced comminuted fracture of shaft of humerus, right arm, initial encounter for closed fracture; Y35.811A Legal intervention involving manhandling, law enforcement official injured, initial encounter; J44.9 Chronic obstructive pulmonary disease, unspecified; I10 Essential (primary) hypertension; I25.10 Atherosclerotic heart disease of native coronary artery without angina pectoris; E11.40 Type 2 diabetes mellitus with diabetic neuropathy, unspecified; G47.30 Sleep apnea, unspecified; Z99.89 Dependence on other enabling machines and devices; E78.5 Hyperlipidemia, unspecified; G25.81 Restless legs syndrome; K21.9 Gastro-esophageal reflux disease without esophagitis; F17.220 Nicotine dependence, chewing tobacco, uncomplicated; F10.20 Alcohol dependence, uncomplicated; E66.9 Obesity, unspecified; Z79.899 Other long term (current) drug therapy; Z59.02 Unsheltered homelessness; Z88.8 Allergy status to other drugs, medicaments and biological substances; Z90.49 Acquired absence of other specified parts of digestive tract
CPT/HCPCS: 29105; 36415; 70450; 70498; 73060; 80048; 80053; 80061; 80178; 80320; 81003; 82947; 83036; 84439; 84443; 84481; 85025; 86592; 87426-QW; 87428-QW; 93005; 93010; 94640; 94664; 94760; 96365; 96366; 96372; 96374; 96375; 96376; 99285-25; A9270; G0378; G0480; J1650; J1885; J2270; J3411; J7050; Q9967

== ENCOUNTER 2025-03-07 21:15 | Emergency (ER) | payer MEDICARE ==
[~2025-03-07] VITALS: Ht 177.8 cm; Wt 90.7 kg
[2025-03-07 21:23] VITALS: BP 196/98
[2025-03-07] MEDS ORDERED: Ketorolac Tromethamine 30mg Vial IM ONE (22:10)
== END 2025-03-07 23:58 | disposition home or self-care (01) ==
LOC: ER 21:15
DX: S42.301A Unspecified fracture of shaft of humerus, right arm, initial encounter for closed fracture (principal); I10 Essential (primary) hypertension; I25.10 Atherosclerotic heart disease of native coronary artery without angina pectoris; J44.89 Other specified chronic obstructive pulmonary disease; E11.40 Type 2 diabetes mellitus with diabetic neuropathy, unspecified; E78.5 Hyperlipidemia, unspecified; K21.9 Gastro-esophageal reflux disease without esophagitis; G47.30 Sleep apnea, unspecified; G25.81 Restless legs syndrome; F17.220 Nicotine dependence, chewing tobacco, uncomplicated; Z91.51 Personal history of suicidal behavior; Z88.8 Allergy status to other drugs, medicaments and biological substances; Z79.84 Long term (current) use of oral hypoglycemic drugs; Z79.51 Long term (current) use of inhaled steroids; Z79.899 Other long term (current) drug therapy; X58.XXXA Exposure to other specified factors, initial encounter
CPT/HCPCS: 96372; 99282-25; J1885

== ENCOUNTER 2025-03-16 19:27 | Emergency (ER) | payer MEDICARE ==
[~2025-03-16] VITALS: Ht 177.8 cm; Wt 104.3 kg
[2025-03-16 19:34] VITALS: BP 153/96
== END 2025-03-16 20:30 | disposition left against medical advice (07) ==
LOC: ER 19:27
DX: R45.851 Suicidal ideations (principal); Z53.29 Procedure and treatment not carried out because of patient's decision for other reasons
CPT/HCPCS: 99281

== ENCOUNTER 2025-03-16 22:16 | Observation (INO) | payer MEDICARE ==
[~2025-03-16] VITALS: Ht 177.8 cm; Wt 104.3 kg
[2025-03-16] MEDS ORDERED: OxyCODONE HCL 5 MG TAB PO ONE (23:55)
[2025-03-17 01:14] LABS: BASOPHILS ABSOLUTE AUTO 0.12 K/mm3 (0.00-0.23); BASOPHILS PERCENT AUTO 2 % (0-2); EOSINOPHILS ABSOLUTE AUTO 0.32 K/mm3 (0.00-0.68); EOSINOPHILS PERCENT AUTO 4 % (0-6); Hematocrit 35.9 % (37.0-53.0); Hemoglobin 11.2 g/dL (13.5-17.5); IMMATURE GRAN ABSOLUTE AUTO 0.03 K/mm3 (0.00-0.10); IMMATURE GRAN PERCENT AUTO 0 % (0-1); LYMPHOCYTES PERCENT AUTO 24 % (21-46); MONOCYTES ABSOLUTE AUTO 0.64 K/mm3 (0.16-1.47); MONOCYTES PERCENT AUTO 8 % (4-13); Mean Corpuscular HGB 24.9 pg (26.0-34.0); Mean Corpuscular HGB Conc 31.2 g/dL (31.5-36.5); Mean Corpuscular Volume 80 fL (80-100); Mean Platelet Volume 9.3 fL (9.1-12.4); NEUTROPHILS ABSOLUTE AUTO 4.85 K/mm3 (1.96-9.15); NEUTROPHILS PERCENT AUTO 62 % (41-73); Platelet Count 362 K/mm3 (150-400); RDW Coefficient Variation 15.7 % (11.7-14.2); RDW Standard Deviation 45.1 fL (35.1-46.3); Red Blood Cell Count 4.49 M/mm3 (4.30-5.90); White Blood Cell Count 7.86 K/mm3 (4.00-11.30)
[2025-03-17 01:32] LABS: Ethanol (Alcohol), Blood, Med 35 mg/dL; Salicylate <1.7 mg/dL (2.8-20.0)
[2025-03-17 01:33] LABS: Alanine Aminotransfer (ALT/SGP 16 U/L (12-78); Albumin/Globulin Ratio 0.8 (0.8-1.8); Alk Phos 167 U/L (50-136); Anion Gap 12 mmol/L (3-11); Aspartate Aminotrans (AST/SGOT 13 U/L (12-37); Bilirubin, Total 0.2 mg/dL (0.1-1.0); Blood Urea Nitrogen 9 mg/dL (8-24); Bun/Creatinine Ratio 13.3 (12.0-20.0); CO2, Blood 23 mmol/L (21-32); Calcium, Blood 8.4 mg/dL (8.5-10.1); Chloride, Blood 108 mmol/L (98-108); Creatinine, Blood 0.68 mg/dL (0.60-1.20); Globulin, Blood 3.7 g/dL (2.2-4.0); Glomerular Filtration Rate 103 (60-); Glucose, Blood 105 mg/dL (70-99); Potassium, Blood 3.5 mmol/L (3.5-5.5); Sodium, Blood 139 mmol/L (136-145); Total Protein, Blood 6.7 g/dL (6.4-8.2)
[2025-03-17 01:39] LABS: Acetaminophen, Random <2.0 ug/mL (10.0-30.0)
[2025-03-17] MEDS ORDERED: rOPINIRole HCl 1 MG Tab PO ONE (03:10)
[2025-03-17 11:31] LABS: Source, Urine Clean Catch
[2025-03-17 11:38] LABS: Appearance, Urine Clear (Clear); Bilirubin, Urine Neg (Neg); Blood, Urine Neg (Neg); Color, Urine Yellow (P-Yellow); Glucose Qualitative, Urine Neg (Neg); Ketones, Urine Neg (Neg); Leukocyte Esterase, Urine Neg (Neg); Nitrite, Urine Neg (Neg); Protein, Urine Neg (Neg); Urobilinogen, Urine NORM (Normal)
[2025-03-17 12:07] LABS: U Amphetamine Screen Not Detected; U Barbituate Screen Not Detected; U Benzodiazapine Screen Not Detected; U Buprenorphine Screen Not Detected; U Cannabinoids Screen Not Detected; U Cocaine Screen Not Detected; U Methadone Screen Not Detected; U Methamphetamine Screen Not Detected; U Opiates Screen Not Detected; U Oxycodone Screen DETECTED; U Phencyclidine Screen Not Detected
[2025-03-17] MEDS ORDERED: Acetaminophen 500 MG Tab PO ONE (12:15)
[2025-03-17 12:35] VITALS: BP 164/87
== END 2025-03-17 23:00 | disposition home or self-care (01) ==
LOC: ER 22:16 → EOR 22:17
PROVIDERS: ADMIT Student in an Organized Health Care Education/Training Program
DX: F32.9 Major depressive disorder, single episode, unspecified (principal); R45.851 Suicidal ideations; I10 Essential (primary) hypertension; J44.9 Chronic obstructive pulmonary disease, unspecified; E11.40 Type 2 diabetes mellitus with diabetic neuropathy, unspecified; I25.10 Atherosclerotic heart disease of native coronary artery without angina pectoris; K21.9 Gastro-esophageal reflux disease without esophagitis; G25.81 Restless legs syndrome; Z79.84 Long term (current) use of oral hypoglycemic drugs; Z79.899 Other long term (current) drug therapy
CPT/HCPCS: 80053; 80320; 81003; 85025; 99285; A9270; G0378; G0480

== ENCOUNTER 2025-03-22 20:57 | Emergency (ER) | payer MEDICARE, MEDICAID ==
[~2025-03-22] VITALS: Ht 177.8 cm; Wt 104.3 kg
[2025-03-22 21:00] VITALS: BP 137/83
[2025-03-22] MEDS ORDERED: Ketorolac Tromethamine 10 MG Tab PO ONE (22:05)
== END 2025-03-22 22:11 | disposition home or self-care (01) ==
LOC: ER 20:57
DX: S42.351A Displaced comminuted fracture of shaft of humerus, right arm, initial encounter for closed fracture (principal); X58.XXXA Exposure to other specified factors, initial encounter; Z88.8 Allergy status to other drugs, medicaments and biological substances; Z79.899 Other long term (current) drug therapy
CPT/HCPCS: 99282; A9270

== ENCOUNTER 2025-07-10 13:48 | Emergency (ER) | payer MEDICARE, MEDICAID ==
[~2025-07-10] VITALS: Ht 177.8 cm; Wt 106.6 kg
[~2025-07-10 13:48] MED LIST changes: +QUET200 PO; +REXULTI2 MG PO
[2025-07-10 16:14] LABS: BASOPHILS ABSOLUTE AUTO 0.08 K/mm3 (0.00-0.23); BASOPHILS PERCENT AUTO 1 % (0-2); EOSINOPHILS ABSOLUTE AUTO 0.32 K/mm3 (0.00-0.68); EOSINOPHILS PERCENT AUTO 4 % (0-6); Hematocrit 35.4 % (37.0-53.0); Hemoglobin 10.9 g/dL (13.5-17.5); IMMATURE GRAN ABSOLUTE AUTO 0.04 K/mm3 (0.00-0.10); IMMATURE GRAN PERCENT AUTO 1 % (0-1); LYMPHOCYTES ABSOLUTE AUTO 1.03 K/mm3 (0.84-5.20); LYMPHOCYTES PERCENT AUTO 13 % (21-46); MONOCYTES ABSOLUTE AUTO 0.78 K/mm3 (0.16-1.47); MONOCYTES PERCENT AUTO 10 % (4-13); Mean Corpuscular HGB Conc 30.8 g/dL (31.5-36.5); Mean Corpuscular Volume 79 fL (80-100); NEUTROPHILS ABSOLUTE AUTO 5.45 K/mm3 (1.96-9.15); NEUTROPHILS PERCENT AUTO 71 % (41-73); NRBC ABSOLUTE 0.00 K/mm3 (0.00-0.02); NRBC Auto 0.0 /100 WBC (0.0-0.2); Platelet Count 267 K/mm3 (150-400); RDW Coefficient Variation 17.0 % (11.7-14.2); RDW Standard Deviation 47.5 fL (35.1-46.3)
[2025-07-10 16:37] LABS: Alanine Aminotransfer (ALT/SGP 40.0 U/L (12-78); Albumin, Blood 2.6 g/dL (3.4-5.0); Albumin/Globulin Ratio 0.6 (0.8-1.8); Anion Gap 9.0 mmol/L (3-11); Aspartate Aminotrans (AST/SGOT 94.0 U/L (12-37); Bilirubin, Total 0.6 mg/dL (0.1-1.0); Blood Urea Nitrogen 12.0 mg/dL (8-24); CO2, Blood 24.0 mmol/L (21-32); Calcium, Blood 8.1 mg/dL (8.5-10.1); Chloride, Blood 107.0 mmol/L (98-108); Creatinine, Blood 0.85 mg/dL (0.60-1.20); Globulin, Blood 4.2 g/dL (2.2-4.0); Glucose, Blood 90.0 mg/dL (70-99); Potassium, Blood 4.0 mmol/L (3.5-5.5); Sodium, Blood 136.0 mmol/L (136-145); Total Protein, Blood 6.8 g/dL (6.4-8.2)
[2025-07-10] MEDS ORDERED: Lidocaine 4% 1 Patch TOP ONE (17:35)
[2025-07-10] MEDS ORDERED: LIDO700A20 TOP (17:42)
[2025-07-10] MEDS ORDERED: Percocet 5-3251 EACH PO (17:42)
[2025-07-10] MEDS ORDERED: IBUP800 PO (17:42)
[2025-07-10 17:45] VITALS: BP 145/83
[2025-07-10] MEDS ORDERED: OxyCODONE 5 mg/Acetamin 325 mg TABLET PO ONE (17:45)
== END 2025-07-10 18:09 | disposition home or self-care (01) ==
LOC: ER 13:48
PROVIDERS: Student in an Organized Health Care Education/Training Program
DX: S20.212A Contusion of left front wall of thorax, initial encounter (principal); R52 Pain, unspecified; W10.9XXA Fall (on) (from) unspecified stairs and steps, initial encounter; R00.2 Palpitations; I10 Essential (primary) hypertension; J44.89 Other specified chronic obstructive pulmonary disease; G47.30 Sleep apnea, unspecified; E11.40 Type 2 diabetes mellitus with diabetic neuropathy, unspecified; I25.10 Atherosclerotic heart disease of native coronary artery without angina pectoris; E78.5 Hyperlipidemia, unspecified; K21.9 Gastro-esophageal reflux disease without esophagitis; F17.220 Nicotine dependence, chewing tobacco, uncomplicated; Z88.8 Allergy status to other drugs, medicaments and biological substances; Z79.84 Long term (current) use of oral hypoglycemic drugs; Z79.899 Other long term (current) drug therapy
CPT/HCPCS: 71101; 72170; 80053; 85025; 93005; 93010; 99284-25; A9270

== ENCOUNTER 2025-07-14 00:43 | Emergency (ER) | payer MEDICARE, OTHER ==
[~2025-07-14] VITALS: Ht 177.8 cm; Wt 106.6 kg
[~2025-07-14 00:43] MED LIST changes: +IBUP800 PO; +LIDO700A20 TOP; +Percocet 5-3251 EACH PO
[2025-07-14] MEDS ORDERED: Ibuprofen600 MG PO (02:38)
[2025-07-14 03:32] VITALS: BP 140/98
== END 2025-07-14 03:35 | disposition home or self-care (01) ==
LOC: ER 00:43
DX: S20.212D Contusion of left front wall of thorax, subsequent encounter (principal); Z02.9 Encounter for administrative examinations, unspecified; I10 Essential (primary) hypertension; J44.9 Chronic obstructive pulmonary disease, unspecified; E11.9 Type 2 diabetes mellitus without complications; K21.9 Gastro-esophageal reflux disease without esophagitis; W19.XXXD Unspecified fall, subsequent encounter; Z88.8 Allergy status to other drugs, medicaments and biological substances; Z79.84 Long term (current) use of oral hypoglycemic drugs; Z79.899 Other long term (current) drug therapy; F17.220 Nicotine dependence, chewing tobacco, uncomplicated; Z59.89 Other problems related to housing and economic circumstances
CPT/HCPCS: 99282; A9270

== ENCOUNTER 2025-07-17 22:51 | Inpatient (IN) | payer MEDICARE ==
[~2025-07-17] VITALS: Ht 177.8 cm; Wt 113.0 kg
[~2025-07-17 22:51] MED LIST changes: +Ibuprofen600 MG PO
[2025-07-17] MEDS ORDERED: NS 1,000 ML IV ONE (23:24)
[2025-07-17] MEDS ORDERED: NS 1,000 ML IV SCH (23:30)
[2025-07-17 23:36] LABS: BASOPHILS ABSOLUTE AUTO 0.11 K/mm3 (0.00-0.23); BASOPHILS PERCENT AUTO 2 % (0-2); EOSINOPHILS ABSOLUTE AUTO 0.56 K/mm3 (0.00-0.68); EOSINOPHILS PERCENT AUTO 7 % (0-6); Hematocrit 39.2 % (37.0-53.0); Hemoglobin 11.8 g/dL (13.5-17.5); IMMATURE GRAN ABSOLUTE AUTO 0.02 K/mm3 (0.00-0.10); IMMATURE GRAN PERCENT AUTO 0 % (0-1); LYMPHOCYTES ABSOLUTE AUTO 1.30 K/mm3 (0.84-5.20); LYMPHOCYTES PERCENT AUTO 17 % (21-46); MONOCYTES ABSOLUTE AUTO 0.76 K/mm3 (0.16-1.47); MONOCYTES PERCENT AUTO 10 % (4-13); Mean Corpuscular HGB Conc 30.1 g/dL (31.5-36.5); Mean Corpuscular Volume 82 fL (80-100); NEUTROPHILS ABSOLUTE AUTO 4.79 K/mm3 (1.96-9.15); NEUTROPHILS PERCENT AUTO 64 % (41-73); NRBC ABSOLUTE 0.00 K/mm3 (0.00-0.02); NRBC Auto 0.0 /100 WBC (0.0-0.2); Platelet Count 278 K/mm3 (150-400); RDW Coefficient Variation 18.0 % (11.7-14.2); RDW Standard Deviation 52.0 fL (35.1-46.3)
[2025-07-17 23:54] LABS: Alanine Aminotransfer (ALT/SGP 29.0 U/L (12-78); Albumin, Blood 3.3 g/dL (3.4-5.0); Albumin/Globulin Ratio 0.8 (0.8-1.8); Anion Gap 14.0 mmol/L (3-11); Aspartate Aminotrans (AST/SGOT 22.0 U/L (12-37); Bilirubin, Total 0.2 mg/dL (0.1-1.0); Blood Urea Nitrogen 16.0 mg/dL (8-24); CO2, Blood 19.0 mmol/L (21-32); Calcium, Blood 8.4 mg/dL (8.5-10.1); Chloride, Blood 114.0 mmol/L (98-108); Creatinine, Blood 1.3 mg/dL (0.60-1.20); Ethanol (Alcohol), Blood, Med 84.0 mg/dL; Globulin, Blood 4.1 g/dL (2.2-4.0); Glucose, Blood 74.0 mg/dL (70-99); Potassium, Blood 3.5 mmol/L (3.5-5.5); Sodium, Blood 143.0 mmol/L (136-145); Total Protein, Blood 7.4 g/dL (6.4-8.2)
[2025-07-17] MEDS ORDERED: Naloxone HCl 0.4MG / ML 1ML Vial ONE (23:57)
[2025-07-18] VITALS (25 sets, daily range): BP systolic 73–158; BP diastolic 49–97
[2025-07-18] MEDS ORDERED: Naloxone HCl 0.4MG / ML 1ML Vial IV ONE (00:05)
[2025-07-18] MEDS ORDERED: Mag Sulfate 1 GM/D5% 100ML 100 ML IV ONE (00:20)
[2025-07-18] MEDS ORDERED: Ondansetron HCl 2 MG / ML 2ML Vial IV ONE (00:20)
[2025-07-18 00:21] LABS: pH Blood Arterial 7.27 (7.35-7.45)
[2025-07-18] MEDS ORDERED: Ondansetron HCl 2 MG / ML 2ML Vial IV PRN (01:30)
[2025-07-18 02:06] LABS: Magnesium, Blood 2.2 mg/dL (1.6-2.4); Phosphorus, Blood 3.0 mg/dL (2.5-4.9); Salicylate 2.0 mg/dL (2.8-20.0)
[2025-07-18 03:57] LABS: BASOPHILS ABSOLUTE AUTO 0.07 K/mm3 (0.00-0.23); BASOPHILS PERCENT AUTO 1 % (0-2); EOSINOPHILS ABSOLUTE AUTO 0.51 K/mm3 (0.00-0.68); EOSINOPHILS PERCENT AUTO 10 % (0-6); Hematocrit 35.8 % (37.0-53.0); Hemoglobin 10.7 g/dL (13.5-17.5); IMMATURE GRAN ABSOLUTE AUTO 0.02 K/mm3 (0.00-0.10); IMMATURE GRAN PERCENT AUTO 0 % (0-1); LYMPHOCYTES ABSOLUTE AUTO 1.22 K/mm3 (0.84-5.20); LYMPHOCYTES PERCENT AUTO 23 % (21-46); MONOCYTES ABSOLUTE AUTO 0.60 K/mm3 (0.16-1.47); MONOCYTES PERCENT AUTO 11 % (4-13); Mean Corpuscular HGB Conc 29.9 g/dL (31.5-36.5); Mean Corpuscular Volume 83 fL (80-100); NEUTROPHILS ABSOLUTE AUTO 2.83 K/mm3 (1.96-9.15); NEUTROPHILS PERCENT AUTO 54 % (41-73); NRBC ABSOLUTE 0.00 K/mm3 (0.00-0.02); NRBC Auto 0.0 /100 WBC (0.0-0.2); Platelet Count 229 K/mm3 (150-400); RDW Coefficient Variation 17.9 % (11.7-14.2); RDW Standard Deviation 53.0 fL (35.1-46.3)
[2025-07-18 04:44] LABS: Alanine Aminotransfer (ALT/SGP 24.0 U/L (12-78); Albumin, Blood 2.6 g/dL (3.4-5.0); Albumin/Globulin Ratio 0.7 (0.8-1.8); Anion Gap 11.0 mmol/L (3-11); Aspartate Aminotrans (AST/SGOT 18.0 U/L (12-37); Bilirubin, Total 0.2 mg/dL (0.1-1.0); Blood Urea Nitrogen 15.0 mg/dL (8-24); CO2, Blood 19.0 mmol/L (21-32); Calcium, Blood 7.7 mg/dL (8.5-10.1); Chloride, Blood 117.0 mmol/L (98-108); Creatinine, Blood 1.2 mg/dL (0.60-1.20); Globulin, Blood 3.5 g/dL (2.2-4.0); Glucose, Blood 93.0 mg/dL (70-99); Magnesium, Blood 2.3 mg/dL (1.6-2.4); Potassium, Blood 3.5 mmol/L (3.5-5.5); Sodium, Blood 143.0 mmol/L (136-145); Total Protein, Blood 6.1 g/dL (6.4-8.2)
--- NOTE | 2025-07-18 05:21 | NUR ---
SHIFT SUMMARY PT HAS TOLERATED NIGHT SINCE ADMIT TO ICU WITH NO SIGNIFICANT EVENTS OR CHANGES IN STATUS. PT CURRENTLY ON BIPAP, LUNG SOUNDS ARE CLEAR AND DIM. PT IS DIFFICULT TO AROUSE BUT WILL WAKE SHORTLY TO PAINFUL STIMULI. PT IS CURRENTLY RESTING COMFORTABLY IN ROOM, BP STABLE WITH FLUIDS PER JAN. CALL LIGHT WITHIN REACH. WILL CONTINUE TO MONITOR UNTIL REPORT PASSED TO DAY SHIFT TEAM.
--- NOTE | 2025-07-18 07:00 | NUR ---
ASSUMPTION OF CARE PT IS RECEIVING LR 100ML/HR. HE IS CURRENTLY ON BIPAP 05/06 WITH 25% FIO2. SINUS ON ONITOR WITH RATE IN 70S. BP STABLE WITH MAP >65. BED IN LOW POSITION, CALL LIGHT WITHIN REACH.
--- NOTE | 2025-07-18 08:26 | NUR ---
UPDATE PT WAKENS AND ASKS "WHERE AM I?". WHEN TOLD HE IS IN THE HOSPITAL HE STS "I WAS JUST HERE". PROVIDED ORIENTATION, PT CALM AND COOPERATIVE. HE REPORTS HIS LAST DRINK WAS 2 DAYS AGO. HE STS HE TOOK 2 MUSCLE RELAXERS LAST NIGHT FOR HIS BACK PAIN FROM A PREVIOUS FALL. CIWA 4. PT'S SPEECH REMAINS SOMEWHAT SLURRED/MUMBLED. PARTICIPATES IN CONVERSATION AND ASSIST WITH CARE ABLE. PT REPORTS HE BEGAN DRINKING MORE ALCOHOL DUE TO STRAINED RELATIONSHIP WITH HIS DAUGHTER. HE ENDORSES THAT HE WOULD LIKE TO STOP DRINKING AND HE THOUGHT ADAPT WAS SUPPOSED TO BE FOLLOWING UP WITH HIM. PT CURRENLY LIVING IN VEHICLE.
[2025-07-18] MEDS ORDERED: Enoxaparin 40 MG/0.4 ML SYR SC SCH (09:00)
[2025-07-18] MEDS ORDERED: Insulin Human Lispro 100 Units/ML 3ML Syringe SC SCH (11:30)
[2025-07-18] MEDS ORDERED: Ipratropium/Albuterol SulF 2.5-0.5MG/3 ML Amp INH PRN (17:45)
--- NOTE | 2025-07-18 21:26 | NUR ---
REPORT CALLED TO AISHWARYA SHEARER, 3RD FLOOR NURSE FOR TRANSFER TO [facility]. REVIEWED ALL OUTSTANDING ISSUES AND PROBLEMS TO DATE. VSS, TRANSFERRING VIA W/C WITH TELE AND RN ESCORT WITH ALL BELONGINGS.
[2025-07-18] MEDS ORDERED: Lidocaine 4% 1 Patch TOP SCH (23:50)
--- NOTE | 2025-07-19 01:00 | NUR ---
PATIENT ARRIVED FROM ICU VIA W/C AT 2145. ABLE TO STAND AND TRANSFER TO BED. REVIEWED ROOM LAYOUT PATIENT WANTED A COFFEE AT THAT TIME. DID CALL DR FOR LIDOCAIN PATCH ORDER OVER COCC[employer] TELE PLACED AND IS SR
[2025-07-19 04:54] LABS: Hematocrit 34.7 % (37.0-53.0); Hemoglobin 10.6 g/dL (13.5-17.5); Mean Corpuscular HGB Conc 30.5 g/dL (31.5-36.5); Mean Corpuscular Volume 79 fL (80-100); NRBC ABSOLUTE 0.00 K/mm3 (0.00-0.02); NRBC Auto 0.0 /100 WBC (0.0-0.2); Platelet Count 213 K/mm3 (150-400); RDW Coefficient Variation 17.5 % (11.7-14.2); RDW Standard Deviation 50.8 fL (35.1-46.3)
[2025-07-19 04:57] VITALS: BP 162/93
[2025-07-19 05:34] LABS: Alanine Aminotransfer (ALT/SGP 20.0 U/L (12-78); Albumin, Blood 2.6 g/dL (3.4-5.0); Albumin/Globulin Ratio 0.8 (0.8-1.8); Anion Gap 10.0 mmol/L (3-11); Aspartate Aminotrans (AST/SGOT 13.0 U/L (12-37); Bilirubin, Total 0.4 mg/dL (0.1-1.0); Blood Urea Nitrogen 15.0 mg/dL (8-24); CO2, Blood 24.0 mmol/L (21-32); Calcium, Blood 7.7 mg/dL (8.5-10.1); Chloride, Blood 109.0 mmol/L (98-108); Creatinine, Blood 1.13 mg/dL (0.60-1.20); Globulin, Blood 3.2 g/dL (2.2-4.0); Glucose, Blood 104.0 mg/dL (70-99); Potassium, Blood 3.4 mmol/L (3.5-5.5); Sodium, Blood 140.0 mmol/L (136-145); Total Protein, Blood 5.8 g/dL (6.4-8.2)
[2025-07-19] MEDS ORDERED: ASPI81CH PO (05:49)
--- NOTE | 2025-07-19 07:28 | NUR ---
SHIFT SUMMARY; BP ELEVATED, REVIEWED MED REC AND SHOULD BE GETTING REGULAR MED THIS MORNING. TELE SR 60-70. UP TO WITH BR WITH SB ONLY
[2025-07-19 07:30] VITALS: BP 164/106
[2025-07-19] MEDS ORDERED: Lidocaine 4% 1 Patch TOP SCH (09:00)
[2025-07-19] MEDS ORDERED: NS 250 ML IV PRN (10:05)
[2025-07-19] MEDS ORDERED: Potassium Chloride 10 Meq Tablet SA PO ONE (12:35)
[2025-07-19] MEDS ORDERED: Tiotropium Bromide 2.5 MCG/ACT MIST INHAL (10 ACT/4 GM) INH SCH (12:50)
[2025-07-19] MEDS ORDERED: Formoterol/Mometasone MDI 5/200 mcg 13 GM INH SCH (13:00)
[2025-07-19 13:25] VITALS: BP 154/100
[2025-07-19 16:10] VITALS: BP 171/106
--- NOTE | 2025-07-19 19:21 | NUR ---
SHIFT SUMMARY ADMIT SINCE 07.18.25 FOR TME AND HEAVY ETOH CONSUMPTION. TRANSFER FROM ICU TO [facility] EVENING OF 07.18.25. A&OX4, INDEPENDENT IN ROOM. CALLS APPROPRIATELY. HX DRINKING 1 PINT VODKA/DAY OR TWO 24-PKS OF BEER. 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 PT USING PERSONAL PHONE, WAS TOLD HE IS ACCEPTED FOR RESIDING AT [facility] UPON D/C. PT MOOD GREATLY IMPROVED. INITIATED HOME COZAAR FOR UPTRENDING BP. PAIN FROM FALL PRIOR TO ADMISSION WELL CONTROLLED WITH LIDOCAINE PATCH BID.
[2025-07-19 20:55] VITALS: BP 147/87
[2025-07-19 23:28] VITALS: BP 126/77
[2025-07-20 04:22] VITALS: BP 143/99
--- NOTE | 2025-07-20 04:49 | NUR ---
SHIFT SUMMARY NOC PT A/O X 4. PLEASANT AND COOPERATIVE WITH CARE. VSS. HS CBG 129 CNI. NO ACUTE CHANGES TO REPORT. PT RECEIVED FIRST DOSE OF SEROQUEL AT BEDTIME AND REPORTED BETTER SLEEP. PT ON TELE NSR IN 70'S, RHYTHM STRIP VERIFIED AND AGREE WITH RATE/RHTYHM. PT IS SEEKING PLACEMENT @ [facility] FOR HOUSING, CARE MANAGEMENT LEFT MESSAGE YESTERDAY AND AWAITING RESPONSE. PT CURRENTLY RESTING WITH BED IN LOWEST POSITION, AND CALL LIGHT WITHIN REACH.
[2025-07-20 06:06] LABS: Hematocrit 35.5 % (37.0-53.0); Hemoglobin 11.1 g/dL (13.5-17.5); Mean Corpuscular HGB Conc 31.3 g/dL (31.5-36.5); Mean Corpuscular Volume 79 fL (80-100); NRBC ABSOLUTE 0.00 K/mm3 (0.00-0.02); NRBC Auto 0.0 /100 WBC (0.0-0.2); Platelet Count 229 K/mm3 (150-400); RDW Coefficient Variation 17.8 % (11.7-14.2); RDW Standard Deviation 51.5 fL (35.1-46.3)
[2025-07-20 06:26] LABS: Anion Gap 5.0 mmol/L (3-11); Blood Urea Nitrogen 10.0 mg/dL (8-24); CO2, Blood 27.0 mmol/L (21-32); Calcium, Blood 7.6 mg/dL (8.5-10.1); Chloride, Blood 109.0 mmol/L (98-108); Creatinine, Blood 0.87 mg/dL (0.60-1.20); Glucose, Blood 110.0 mg/dL (70-99); Potassium, Blood 3.2 mmol/L (3.5-5.5); Sodium, Blood 138.0 mmol/L (136-145)
[2025-07-20 07:14] VITALS: BP 154/95
[2025-07-20] MEDS ORDERED: DULoxetine HCL 30 MG Cap DR PO SCH (09:00)
[2025-07-20 11:03] VITALS: BP 164/104
[2025-07-20] MEDS ORDERED: FOLI1 PO (14:04)
[2025-07-20] MEDS ORDERED: B-1100 M1 PO (14:05)
--- NOTE | 2025-07-20 14:20 | NUR ---
PT DISCHARGED TO HOME. ALL VALUABLES RETURNED AND SENT HOME WITH THE PT. DISCHARGE INSTRUCTIONS PROVIDED AND EDUCATED ON AT TIME OF DISCHARGE. MEDICATIONS FAXED TO [facility].
== END 2025-07-20 14:20 | disposition home or self-care (01) | DRG 91 ==
LOC: ER 22:51 → ICUE 07-18 01:29 → MEDS 07-18 01:29 → ICUE 07-18 02:52 → MEDS 07-18 22:04
PROVIDERS: Emergency Medicine; Family Medicine; Student in an Organized Health Care Education/Training Program; ADMIT Student in an Organized Health Care Education/Training Program
PROC: 4A033R1 Measurement of Arterial Saturation, Peripheral, Percutaneous Approach (ICD-10-PCS; principal; 2025-07-18)
PROC: 5A09357 Assistance with Respiratory Ventilation, Less than 24 Consecutive Hours, Continuous Positive Airway Pressure (ICD-10-PCS; 2025-07-18)
DX: G92.8 Other toxic encephalopathy (principal); J96.00 Acute respiratory failure, unspecified whether with hypoxia or hypercapnia; E87.20 Acidosis, unspecified; I10 Essential (primary) hypertension; J44.89 Other specified chronic obstructive pulmonary disease; G47.30 Sleep apnea, unspecified; E11.42 Type 2 diabetes mellitus with diabetic polyneuropathy; E78.5 Hyperlipidemia, unspecified; K21.9 Gastro-esophageal reflux disease without esophagitis; G25.81 Restless legs syndrome; I25.10 Atherosclerotic heart disease of native coronary artery without angina pectoris; F17.220 Nicotine dependence, chewing tobacco, uncomplicated; D64.9 Anemia, unspecified; N28.9 Disorder of kidney and ureter, unspecified; G47.33 Obstructive sleep apnea (adult) (pediatric); F32.9 Major depressive disorder, single episode, unspecified; F10.220 Alcohol dependence with intoxication, uncomplicated; Z87.81 Personal history of (healed) traumatic fracture; Z79.1 Long term (current) use of non-steroidal anti-inflammatories (NSAID); Z79.51 Long term (current) use of inhaled steroids; Z79.84 Long term (current) use of oral hypoglycemic drugs; Z79.891 Long term (current) use of opiate analgesic; Z79.899 Other long term (current) drug therapy; Z88.8 Allergy status to other drugs, medicaments and biological substances; Z90.49 Acquired absence of other specified parts of digestive tract; Z98.890 Other specified postprocedural states
CPT/HCPCS: 36415; 36600; 70450; 71045; 80048; 80053; 80320; 82010; 82140; 82803; 82947; 83605; 83735; 84100; 84484; 85025; 85027; 93005; 93010; 94640; 94660; 94664; 94762; 96365; 96375; 99285-25; A9270; G0480; J1650; J2312; J2405; J3411; J3475; J7030; J7050; J7120

== ENCOUNTER 2025-08-06 19:22 | Observation (INO) | payer MEDICARE ==
[~2025-08-06] VITALS: Ht 177.8 cm; Wt 108.9 kg
[~2025-08-06 19:22] MED LIST changes: +ASPI81CH PO; +B-1100 M1 PO; +DULO30 PO; -DULO60 PO; +FOLI1 PO; -QUET200 PO; +SERT100 PO; -SERT50 PO
[2025-08-06 20:03] LABS: BASOPHILS ABSOLUTE AUTO 0.09 K/mm3 (0.00-0.23); BASOPHILS PERCENT AUTO 1 % (0-2); EOSINOPHILS ABSOLUTE AUTO 0.54 K/mm3 (0.00-0.68); EOSINOPHILS PERCENT AUTO 6 % (0-6); Hematocrit 37.5 % (37.0-53.0); Hemoglobin 11.6 g/dL (13.5-17.5); IMMATURE GRAN ABSOLUTE AUTO 0.06 K/mm3 (0.00-0.10); IMMATURE GRAN PERCENT AUTO 1 % (0-1); LYMPHOCYTES ABSOLUTE AUTO 1.73 K/mm3 (0.84-5.20); LYMPHOCYTES PERCENT AUTO 20 % (21-46); MONOCYTES ABSOLUTE AUTO 0.95 K/mm3 (0.16-1.47); MONOCYTES PERCENT AUTO 11 % (4-13); Mean Corpuscular HGB Conc 30.9 g/dL (31.5-36.5); Mean Corpuscular Volume 80 fL (80-100); NEUTROPHILS ABSOLUTE AUTO 5.38 K/mm3 (1.96-9.15); NEUTROPHILS PERCENT AUTO 61 % (41-73); NRBC ABSOLUTE 0.00 K/mm3 (0.00-0.02); NRBC Auto 0.0 /100 WBC (0.0-0.2); Platelet Count 242 K/mm3 (150-400); RDW Coefficient Variation 17.5 % (11.7-14.2); RDW Standard Deviation 51.0 fL (35.1-46.3)
[2025-08-06 20:22] LABS: Alanine Aminotransfer (ALT/SGP 15.0 U/L (12-78); Albumin, Blood 3.1 g/dL (3.4-5.0); Albumin/Globulin Ratio 0.9 (0.8-1.8); Anion Gap 9.0 mmol/L (3-11); Aspartate Aminotrans (AST/SGOT 16.0 U/L (12-37); Bilirubin, Total 0.3 mg/dL (0.1-1.0); Blood Urea Nitrogen 23.0 mg/dL (8-24); CO2, Blood 21.0 mmol/L (21-32); Calcium, Blood 7.8 mg/dL (8.5-10.1); Chloride, Blood 110.0 mmol/L (98-108); Creatinine, Blood 1.55 mg/dL (0.60-1.20); Globulin, Blood 3.6 g/dL (2.2-4.0); Glucose, Blood 106.0 mg/dL (70-99); Potassium, Blood 4.0 mmol/L (3.5-5.5); Sodium, Blood 136.0 mmol/L (136-145); Total Protein, Blood 6.7 g/dL (6.4-8.2)
[2025-08-06 20:35] LABS: Ethanol (Alcohol), Blood, Med <3 mg/dL
[2025-08-07 00:30] LABS: CHOL/HDL RATIO 3.9; Cholesterol 120 mg/dL (50-200); HDL Cholesterol 31 mg/dL (>39); LDL/HDL RATIO 1.8; Low Density Lipoprotein Chol 56 mg/dL (0-110); Triglycerides 166 mg/dL (30-160); Very Low Density Lipoprot Chol 33 mg/dL (6-32)
--- NOTE | 2025-08-07 00:52 | NUR ---
ADMIT NOTE RECEIVED REPORT FROM ZAHIRA HOLT IN ER FOR THIS RN TO ASSUME CARE.
[2025-08-07 01:15] VITALS: BP 108/66
[2025-08-07 04:46] VITALS: BP 139/93
[2025-08-07 05:35] LABS: BASOPHILS ABSOLUTE AUTO 0.09 K/mm3 (0.00-0.23); BASOPHILS PERCENT AUTO 1 % (0-2); EOSINOPHILS ABSOLUTE AUTO 0.53 K/mm3 (0.00-0.68); EOSINOPHILS PERCENT AUTO 7 % (0-6); Hematocrit 38.2 % (37.0-53.0); Hemoglobin 11.7 g/dL (13.5-17.5); IMMATURE GRAN ABSOLUTE AUTO 0.05 K/mm3 (0.00-0.10); IMMATURE GRAN PERCENT AUTO 1 % (0-1); LYMPHOCYTES ABSOLUTE AUTO 1.71 K/mm3 (0.84-5.20); LYMPHOCYTES PERCENT AUTO 23 % (21-46); MONOCYTES ABSOLUTE AUTO 0.71 K/mm3 (0.16-1.47); MONOCYTES PERCENT AUTO 10 % (4-13); Mean Corpuscular HGB Conc 30.6 g/dL (31.5-36.5); Mean Corpuscular Volume 81 fL (80-100); NEUTROPHILS ABSOLUTE AUTO 4.32 K/mm3 (1.96-9.15); NEUTROPHILS PERCENT AUTO 58 % (41-73); NRBC ABSOLUTE 0.00 K/mm3 (0.00-0.02); NRBC Auto 0.0 /100 WBC (0.0-0.2); Platelet Count 236 K/mm3 (150-400); RDW Coefficient Variation 17.8 % (11.7-14.2); RDW Standard Deviation 52.3 fL (35.1-46.3)
--- NOTE | 2025-08-07 05:47 | NUR ---
SHIFT SUMMARY ADDMITTED FROM ER. A&OX4. ABLE TO MAKE NEEDS KNOWN. PRESENTS FOR CVA. SOME UNSTEADINESS WHILE AMBULATING. 1 PERSON SBA. CONTINENT OF B & B. CALLS APPROPRIATELY. PLAN IS TO PERFORM AND MRI. PT CURRENTLY SLEEPING IN BED AT LOWEST POSITION WITH RAILS X2 AND CALL LIGHT WITHIN REACH.
[2025-08-07 06:08] LABS: Alanine Aminotransfer (ALT/SGP 16.0 U/L (12-78); Albumin, Blood 3.1 g/dL (3.4-5.0); Albumin/Globulin Ratio 0.8 (0.8-1.8); Anion Gap 6.0 mmol/L (3-11); Aspartate Aminotrans (AST/SGOT 18.0 U/L (12-37); Bilirubin, Total 0.3 mg/dL (0.1-1.0); Blood Urea Nitrogen 22.0 mg/dL (8-24); CO2, Blood 27.0 mmol/L (21-32); Calcium, Blood 8.0 mg/dL (8.5-10.1); Chloride, Blood 107.0 mmol/L (98-108); Creatinine, Blood 1.22 mg/dL (0.60-1.20); Globulin, Blood 3.9 g/dL (2.2-4.0); Glucose, Blood 108.0 mg/dL (70-99); Potassium, Blood 4.3 mmol/L (3.5-5.5); Sodium, Blood 136.0 mmol/L (136-145); Total Protein, Blood 7.0 g/dL (6.4-8.2)
[2025-08-07 07:18] VITALS: BP 136/93
--- NOTE | 2025-08-07 13:24 | NUR ---
Upon receiving a referral for spiritual care, I visited the patient. He is lying in bed and alert. He immediately tells me about his medical issues and his hopes that it will be discovered why he is having dizziness falls. He talks about his family unit complications and his 35 years career working in the [employer]. Our conversation ended when the patient took a phone call. Spiritual care will remain available.
[2025-08-07] MEDS ORDERED: Formoterol/Mometasone MDI 5/200 mcg 13 GM INH SCH (14:35)
[2025-08-07] MEDS ORDERED: Albuterol 2.5 MG/3 ML VIAL INH ONE (15:00)
[2025-08-07] MEDS ORDERED: Albuterol 2.5 MG/3 ML VIAL INH PRN (15:00)
[2025-08-07] MEDS ORDERED: Tiotropium Bromide 2.5 MCG/ACT MIST INHAL (10 ACT/4 GM) INH SCH (15:10)
--- NOTE | 2025-08-07 16:56 | NUR ---
SHIFT SUMMARY PATIENT A&0X4, SLURRED SPEECH IMPROVED T/O SHIFT. COOPERATIVE WITH CARE. DENIED ANY CP/PRESSURE, HEADACHE, DIZZINESS, OR SOB. CONTINUES TO HAVE WEAKNESS ON HIS R SIDE, BUT ABLE TO AMBULATE TO THE BATHROOM INDEPENDENTLY. NO ACUTE CHANGES THIS SHIFT. HEAD MRI DONE TODAY. SCD'S ON PATIENT. BED IN THE LOWEST POSITION. BED ALARM SET. CALL LIGHT WITHIN REACH.
[2025-08-07 19:58] VITALS: BP 148/97
--- NOTE | 2025-08-08 03:45 | NUR ---
SHIFT SUMMARY A&OX4. ABLE TO MAKE NEEDS KNOWN. INDEPENDENT IN ROOM. RESTING COMFORTABLY THROUGHOUT THE NIGHT. CURRENTLY RESTING IN BED AT LOWEST POSITION WITH RAILS X2 AND CALL LIGHT WITHIN REACH. PLAN IS TO GET AN ECHO AND POSSIBLE DISCHARGE HOME.
[2025-08-08 05:18] VITALS: BP 137/86
[2025-08-08 05:50] LABS: BASOPHILS ABSOLUTE AUTO 0.11 K/mm3 (0.00-0.23); BASOPHILS PERCENT AUTO 1 % (0-2); EOSINOPHILS ABSOLUTE AUTO 0.43 K/mm3 (0.00-0.68); EOSINOPHILS PERCENT AUTO 5 % (0-6); Hematocrit 40.2 % (37.0-53.0); Hemoglobin 12.4 g/dL (13.5-17.5); IMMATURE GRAN ABSOLUTE AUTO 0.04 K/mm3 (0.00-0.10); IMMATURE GRAN PERCENT AUTO 1 % (0-1); LYMPHOCYTES ABSOLUTE AUTO 1.56 K/mm3 (0.84-5.20); LYMPHOCYTES PERCENT AUTO 20 % (21-46); MONOCYTES ABSOLUTE AUTO 0.70 K/mm3 (0.16-1.47); MONOCYTES PERCENT AUTO 9 % (4-13); Mean Corpuscular HGB Conc 30.8 g/dL (31.5-36.5); Mean Corpuscular Volume 80 fL (80-100); NEUTROPHILS ABSOLUTE AUTO 5.07 K/mm3 (1.96-9.15); NEUTROPHILS PERCENT AUTO 64 % (41-73); NRBC ABSOLUTE 0.00 K/mm3 (0.00-0.02); NRBC Auto 0.0 /100 WBC (0.0-0.2); Platelet Count 276 K/mm3 (150-400); RDW Coefficient Variation 17.7 % (11.7-14.2); RDW Standard Deviation 51.5 fL (35.1-46.3)
[2025-08-08 06:11] LABS: Alanine Aminotransfer (ALT/SGP 15.0 U/L (12-78); Albumin, Blood 3.3 g/dL (3.4-5.0); Albumin/Globulin Ratio 0.8 (0.8-1.8); Anion Gap 6.0 mmol/L (3-11); Aspartate Aminotrans (AST/SGOT 16.0 U/L (12-37); Bilirubin, Total 0.4 mg/dL (0.1-1.0); Blood Urea Nitrogen 15.0 mg/dL (8-24); CO2, Blood 29.0 mmol/L (21-32); Calcium, Blood 8.5 mg/dL (8.5-10.1); Chloride, Blood 102.0 mmol/L (98-108); Creatinine, Blood 1.01 mg/dL (0.60-1.20); Globulin, Blood 4.3 g/dL (2.2-4.0); Glucose, Blood 117.0 mg/dL (70-99); Potassium, Blood 4.1 mmol/L (3.5-5.5); Sodium, Blood 133.0 mmol/L (136-145); Total Protein, Blood 7.6 g/dL (6.4-8.2)
[2025-08-08 07:58] VITALS: BP 125/89
[2025-08-08 16:08] VITALS: BP 158/103
[2025-08-08] MEDS ORDERED: QUET200 PO (16:11)
[2025-08-08] MEDS ORDERED: CLOP75 PO (16:55)
--- NOTE | 2025-08-08 18:25 | NUR ---
DISCHARGE NO ACUTE CHANGES THIS SHIFT, DENIED PAIN, REVIEWED DISCHARGE INSTRUCTIONS W/PT WHO VERBALIZED UBDERSTANDING, ZIO PATCH PLACED, IV REMOVED, RX FAXED, PT TRANSPORTED VIA WHEELCHAIR TO DISCHARGE IN TAXI @ 1810.
== END 2025-08-08 18:20 | disposition home or self-care (01) ==
LOC: ER 19:22 → MEDS 19:23
PROVIDERS: Family Medicine; Student in an Organized Health Care Education/Training Program; ADMIT Internal Medicine
DX: I63.9 Cerebral infarction, unspecified (principal); N17.9 Acute kidney failure, unspecified; E88.09 Other disorders of plasma-protein metabolism, not elsewhere classified; E78.5 Hyperlipidemia, unspecified; E11.40 Type 2 diabetes mellitus with diabetic neuropathy, unspecified; I25.10 Atherosclerotic heart disease of native coronary artery without angina pectoris; I10 Essential (primary) hypertension; J44.89 Other specified chronic obstructive pulmonary disease; K21.9 Gastro-esophageal reflux disease without esophagitis; G47.33 Obstructive sleep apnea (adult) (pediatric); F10.11 Alcohol abuse, in remission; F17.220 Nicotine dependence, chewing tobacco, uncomplicated; Z88.8 Allergy status to other drugs, medicaments and biological substances; Z79.51 Long term (current) use of inhaled steroids; Z79.84 Long term (current) use of oral hypoglycemic drugs; Z79.899 Other long term (current) drug therapy
CPT/HCPCS: 36415; 70450; 70496; 70498; 70551; 80053; 80061; 80320; 82947; 85025; 93005; 93010; 93246; 93306; 94640; 94664; 94760; 97116; 97162; 99285-25; A9270; G0378; Q9967